=== PATIENT | female | born 1940 | race Caucasian/White ===

== ENCOUNTER 2022-05-16 18:58 | Inpatient (IN) | payer MEDICARE, SELFPAY ==
[2022-05-16] VITALS (36 sets, daily range): BP systolic 87–127; BP diastolic 47–72; PULSE 58–92; RESP 12–27; O2SAT 91–100
--- NOTE | ~2022-05-16 | MR_ITS ---
EXAMINATION: MR brain/brain stem wo con DATE: 05/17/2022 08:12 INDICATION: Seizure. TECHNIQUE: Magnetic resonance imaging (MRI) of the brain and brainstem was performed without intraven ous contrast. COMPARISON: Head CT 05/16/2022 FINDINGS: There is a mass of increased T2-weighted signal intensity in left frontal lobe involving gr ay matter and white matter measuring 2.7 cm with mild enlargement of the involved gyrus. There are sc attered areas of nonspecific increased T2-weighted signal intensity in the cerebral white matter, whi ch is within normal limits for the patient's age. There is no acute ischemic infarct or intracranial hemorrhage. The ventricles are normal in size. There is mild mucosal thickening in the paranasal sinu ses. There are likely changes of ocular lens replacement surgeries. The mastoid air cells are normal. IMPRESSION: 1. 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 The differential diagnosis includes glioma, cortical dysplasia, and subacute infarct. Reviewed, dictated and finalized at location A. IMPRESSION: 1. 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 The differential diagnosis includes glioma , cortical dysplasia, and subacute infarct.
--- NOTE | ~2022-05-16 | XR_ITS ---
XR chest 1V portable 05/16/2022 19:41 Indication: Seizure. History of A. fib. Procedure: AP portable chest Comparison: No prior studies for comparison. Findings: Cardiomegaly. Mild interstitial edema. No pleural effusion or pneumothorax. No acute osseou s abnormality. Impression: 1: Cardiomegaly with interstitial edema. Reviewed, dictated and finalized at location A. Impression: 1: Cardiomegaly with interstitial edema.
--- NOTE | ~2022-05-16 | CT_ITS ---
EXAMINATION: CT brain wo con DATE: 05/16/2022 19:32 INDICATION: Altered mental status. Seizures. TECHNIQUE: Computed tomography (CT) of the head was performed without intravenous contrast. The dose- length product was 681.00 mGy-cm. Automated exposure control and iterative reconstruction technique w ere employed. COMPARISON: No prior studies for comparison. FINDINGS: Prominent perivascular space in the right basal ganglia. Mild generalized atrophy. There ar e scattered mild periventricular and subcortical white matter changes, most likely related to small v essel ischemic disease (microangiopathy). No ventriculomegaly or midline shift. No acute intracranial hemorrhage, infarction, mass or mass effect. IMPRESSION: 1. No acute intracranial abnormality. 2: Chronic age-related findings. Reviewed, dictated and finalized at location A.
--- NOTE | 2022-05-16 19:02 | ECG_ITS ---
Measurements Intervals [place] Rate: 79 P: 75 UT: 197 QRS: -16 QRSD: 144 T: 17 QT: 435 QTc: 499 Interpretive Statements SINUS RHYTHM RIGHT BUNDLE BRANCH BLOCK BASELINE ARTIFACT- I, III, AVR, AVL, AVF ABNORMAL ECG Electronically Signed On 05-17-2022 6:34:30 CDT by Ortiz Frost D.O.
--- NOTE | 2022-05-16 19:04 | ED.GENADULT ---
HPI - General Adult General Chief complaint: Seizure Stated complaint: ams w/ loc Time Seen by Provider: 05/16/22 19:01 History of Present Illness HPI narrative: Patient is a 81-year-old female who presents ER with altered mental status. Patient collapsed at home as witnessed by . Was stuck between that and wall. Had a small abrasion over the bridge of her nose. EMS reports patient was waking up and speaking to them though she was confused in the ambulance on the way to the ER. Patient had normal strength and was moving all extremities. Patient then had a generalized tonic-clonic seizure where she started turning to the right side with her head deviating with her eyes. They give her 5 mg of Valium. They then began providing supportive respirations as patient was sonorous. Patient is still postictal/sedated upon arrival. Not responsive to sternal rub. She still has sonorous respirations. No history of seizure history. Patient is on apixaban. Related Data Home Medications Medication Instructions Recorded Confirmed apixaban 5 mg tablet (Eliquis) 5 mg PO BID 03/08/21 03/08/21 atorvastatin 10 mg tablet 10 mg PO DAILY 03/08/21 03/08/21 ferrous sulfate 325 mg (65 mg 325 mg PO DAILY 03/08/21 03/08/21 iron) tablet furosemide 40 mg tablet 40 mg PO QAM 03/08/21 03/08/21 lisinopril 10 mg tablet 10 mg PO DAILY 03/08/21 03/08/21 metoprolol succinate 50 mg 50 mg PO DAILY 03/08/21 03/08/21 tablet,extended release 24 hr multivitamin 1 tablet PO DAILY 03/08/21 03/08/21 sotalol PO 03/08/21 03/08/21 Allergies Allergy/AdvReac Type Severity Reaction Status Date / Time No Known Allergies Allergy Unverified 04/27/20 13:17 Review of Systems Review of Systems: ROS unobtainable: Yes unobtainable due to medical condition PMFSH Past Medical History Medical History (Updated 05/16/22 @ 23:52 by Alec Maki MD) A-fib H/O blood clots Osteoarthritis of right knee Family History Family History Father Malignant neoplasm of prostate Other Family history of arthritis Family history of cardiovascular disease Hypertension Social History Social History Smoking status: Never smoker Alcohol intake: current Gender identity (if verbalized by the patient): Female Exam Narrative: GENERAL: Ill-appearing, well-nourished, and post-ictal. HEAD: Normocephalic, atraumatic. EYES: PERRL and EOMI. ENT: Mucous membranes moist. Abrasion over the bridge of the nose. CHEST: Clear to auscultation. No respiratory distress. HEART: Regular rate and rhythm. Normal peripheral pulses. ABDOMEN: Soft, nontender, nondistended. EXTREMITIES: Normal range of motion. No edema. SKIN: Warm, dry, no rash. NEURO: Patient initially sedated and postictal and oriented x0 for response to sternal rub. As sedation wore off patient became awake alert and oriented x2 with confusion moving all extremities well with no facial droop or slurred speech. Course Course Emergency Course: Neurology consulted and recommends MRI and EEG. Patient is already been loaded with [employer]. Family has been updated on diagnosis and treatment plan. Vital Signs Vital signs: Vital Signs Pulse Rate 92 05/16/22 18:59 Respiratory Rate 16 05/16/22 18:59 Blood Pressure 123/63 05/16/22 18:59 Pulse Oximetry 94 05/16/22 18:59 Oxygen Delivery Room Air 05/16/22 18:59 Pulse Rate 67 05/16/22 21:01 Respiratory Rate 16 05/16/22 21:01 Blood Pressure 118/67 05/16/22 21:01 Pulse Oximetry 100 05/16/22 21:01 Oxygen Delivery Room Air 05/16/22 18:59 Medical Decision Making Vital Signs Vital Signs: Vital Signs Pulse Rate 92 05/16/22 18:59 Respiratory Rate 16 05/16/22 18:59 Blood Pressure 123/63 05/16/22 18:59 Pulse Oximetry 94 05/16/22 18:59 Oxygen Delivery Room Air 05/16/22 18:59 Pulse Rate 67 07/12
[2022-05-16 19:15] LABS: Alveolar/Arterial O2 Gradient 42.1 mmHg; Base Excess ABG -7.1 mEq/l (+/-2.0); Carboxyhemoglobin 0.3 % THb (0-2.0); Fractional Inspired Oxygen 32 %; HCO3 ABG 20.6 mEq/l (22.0-26.0); Methemoglobin ABG 0.2 %THb (0-1.5); Oxygen Content ABG 16.6 %vol (16.0-22.0); Oxygen Saturation ABG 97.9 % (95.0-100.0); Oxyhemoglobin 96.6 % THb (90.0-100.0); PO2 ABG 126.4 mmHg (80.0-100.0); PO2 FiO2 Ratio Arterial Blood 3.95 %; Reduced Hemoglobin 2.9 %THb (0-5.0); Total Hemoglobin 12.1 g/dL (12.0-18.0)
[2022-05-16 19:16] LABS: Basophils Percent Auto 0.4 % (0.2-1.2); Eosinophils Absolute Auto 0.1 K/mm3 (0-0.3); Eosinophils Percent Auto 1.3 % (0-4.4); Hematocrit 37.1 % (37.0-47.0); Hemoglobin 11.2 g/dL (12.0-15.0); Immature Granulocyte Absolute 0.02 K/mm3 (0.00-0.031); Immature Granulocyte Percent A 0.3 % (0-0.5); Lymphocytes Absolute Auto 2.13 K/mm3 (0.9-3.2); Lymphocytes Percent Auto 31.9 % (18.3-44.2); Mean Corpuscular HGB Conc 30.2 g/dl (32-36); Mean Corpuscular Hemoglobin 30.9 pg (26-34); Mean Corpuscular Volume 102.5 fl (80-100); Mean Platelet Volume 11.4 fl (7.4-10.4); Monocytes Absolute Auto 0.7 K/mm3 (0.1-0.6); Monocytes Percent Auto 10.3 % (2.6-8.5); Neutrophils Absolute Auto 3.7 K/mm3 (1.3-6.7); Neutrophils Percent Auto 55.8 % (45.5-73.1); Platelet Count Result 173 k/mm3 (150-375); Red Blood Count 3.62 M/mm3 (4.2-5.4); Red Cell Distribution Width 13.2 % (11.5-14.5); White Blood Count 6.7 K/mm3 (4.5-10.0)
[2022-05-16 19:17] LABS: Site Drawn RIGHT RADIAL; pH ABG 7.224 (7.350-7.450)
[2022-05-16 19:18] LABS: Device NASAL CANNULA; Modified Allen's Test Pass
[2022-05-16 19:26] LABS: Alanine Aminotransferase 22 U/L (6-35); Albumin Level 4.5 g/dL (3.5-5.1); Alkaline Phosphatase 65 U/L (38-126); Anion Gap 17 mmol/L (8-16); Aspartate Amino Transferase 37 U/L (14-36); Bilirubin,Total 0.6 mg/dL (0.2-1.3); Blood Urea Nitrogen 29 mg/dL (7-17); Calcium 8.7 mg/dL (8.4-10.2); Carbon Dioxide 21 mmol/L (22-30); Chloride 105 mmol/L (98-107); Estimated CRCL calculation 30 ml/min; Estimated Glomerular Filt Rate 29; Glucose 132 mg/dL (65-110); Potassium 3.5 mmol/L (3.4-5.0); Sodium 143 mmol/L (137-145)
[2022-05-16 19:27] LABS: INR 1.4; Lactic Acid Reflex 8.3 mmol/L (0.7-2.0); Partial Thromboplastin Time 26.4 SECONDS (22.3-36.8); Prothrombin Time 16.5 Seconds (11.1-14.7)
[2022-05-16] MEDS: levETIRAcetam 1000MG/NACL100ML 1,000 MG/100 ML BAG 400 MG IVPB (19:39)
[2022-05-16] MEDS: SODIUM CHLORIDE 0.9% IV 1,000 ML 999 ML IV CONT (19:43)
[2022-05-16 20:24] LABS: NT Pro B Type Natriuretic Pept 853 pg/mL (5-100)
[2022-05-16 20:52] LABS: SARS-CoV-2 RNA PCR Negative
[2022-05-16 21:19] LABS: Ethanol < 10 mg/dL (<10)
[2022-05-16 21:28] LABS: Appearance Urine Clear (Clear); Bilirubin Urine Negative (Negative); Glucose Urine UA Negative (Negative); Ketones Urine Negative (Negative); Leukocyte Esterase Ur Trace LEU/UL (Negative); Nitrate Urine Negative (Negative); Protein Urine Negative (Negative); Urobilinogen Urine 0.2 mg/dL (<2.0)
[2022-05-16 21:30] LABS: Add Urine Microscopic? YES; Blood Urine Trace-Intact (Negative); Color Urine Light Yellow (Yellow)
--- NOTE | 2022-05-16 21:31 | PM.IMHP ---
H&P: HPI History of Present Illness Date/Time: 05/16/22 21:31 Chief Complaint: altered mental status Narrative: this is a 81-year-old female with past medical history significant for atrial fibrillation, hypertension, chronic kidney disease, congestive heart failure, cardiomyopathy. Patient was brought to the emergency room via EMS after she was at home and found her while having a seizure, had another seizure In the emergency room grand mal seizure, has no recollection of events but is awake alert and oriented x3. Patient has been in her usual state of health up until this moment denies any fevers, chills, cough, sputum production, nausea, vomiting, diarrhea, abdominal pain, pain or burning with urination, chest pain, vision changes, headaches, denies any focal sensorimotor deficit, no weight loss. preliminary workup was significant for a lactic acid of 8 ABG pH is 7.2 pCO2 50 PO2 120, basic metabolic profile showed a creatinine of 1.7, a head CT did not show any acute intracranial abnormalities. patient has been admitted for further evaluation management and treatment. Review of Systems Review of Systems: seizure, altered mental status. Constitutional: Constitutional: Denies chills, Denies excessive sweating, Denies fatigue, Denies fever(s), Denies frequent falls, Denies headache(s), Denies lethargy, Denies malaise, Denies night sweats, Denies poor appetite, Denies stops breathing during sleep, Denies weakness and Denies weight loss Eyes: Eyes: Denies blind spots, Denies blurry vision, Denies change in vision, Denies diplopia and Denies floaters ENT: Denies dysphagia, Denies vertigo, Denies dizziness, Denies nasal discharge, Denies nasal obstruction and Denies odynophagia Cardiovascular: Cardiovascular: Denies syncope, Denies pedal edema, Denies irregular heart rhythm, Denies leg edema, Denies lightheadedness, Denies palpitations and Denies dyspnea on exertion Respiratory: Respiratory: Denies chest congestion, Denies cough, Denies excessive phlegm production and Denies dyspnea Gastrointestinal: Gastrointestinal: Denies abdominal pain, Denies dyspepsia, Denies heartburn, Denies diarrhea, Denies nausea and Denies vomiting Genitourinary: Genitourinary: Denies dysuria Musculoskeletal: Musculoskeletal: Denies joint swelling, Denies muscle weakness and Denies neck pain Integumentary/Breasts: Skin/Breast: Denies rash Neurologic: Denies vertigo, Denies dizziness, Reports syncope, Denies focal weakness and Denies Sensory deficit (Neuro) Psychiatric: Psychiatric: Reports no additional psychiatric complaints and Reports as per HPI Endocrine: Endocrine: Denies cold intolerance, Denies fatigue, Denies flushing, Denies heat intolerance, Denies polyphagia, Denies polydipsia and Denies palpitations Hematologic/Lymphatic: Hematologic/Lymphatic: Reports no additional hematologic/lymphatic complaints and Reports as per HPI Allergic/Immunologic: Allergic/Immunologic: Reports no additional allergic/immunologic complaints and Reports as per HPI PMFSH Past Medical History Medical History (Updated 05/17/22 @ 03:27 by Raul Peter MD) A-fib H/O blood clots Osteoarthritis of right knee Family History Family History Father Malignant neoplasm of prostate Other Family history of arthritis Family history of cardiovascular disease Hypertension Social History Social History Smoking status: Never smoker Second hand tobacco smoke exposure: Yes Alcohol intake: current Drinks per week: 7 Substance use: never Substance use type: does not use Gender identity (if verbalized by the patient): Female Spiritual care concerns: No Meds Home Medications and Allergies Home Medications Medication Instructions Recorded Confirmed Type apixaban 5 mg tablet (Eliquis) 5 mg PO BID 03/08/21 05/17/22 History atorva
[2022-05-16 21:37] LABS: Amphetamine Screen Urine Negative (Negative); Barbiturate Screen Urine Negative (Negative); Benzodiazepines Screen Urine Negative (Negative); Cannabinoid Screen Urine Negative (Negative); Cocaine Screen Urine Negative (Negative); Methadone Screen Urine Negative (Negative); Opiate Screen Urine Negative (Negative); Phencyclidine Screen Urine Negative (Negative)
[2022-05-16 21:40] LABS: Bacteria Urine Trace /hpf; Mucus Urine Rare /lpf; RBC Urine 0-2 /hpf (0-2); Squamous Epithelial Cell Urine Rare /hpf (Few); WBC Urine 0-3 /hpf
[2022-05-16 22:14] LABS: Reflex Lactic Acid Yes or No Add Lactic
[2022-05-17] VITALS (25 sets, daily range): BP systolic 100–128; BP diastolic 50–88; PULSE 56–84; RESP 14–24; TEMP 36.2–37.2; O2SAT 84–100; BMI 31.3
--- NOTE | 2022-05-17 | ECHO_ITS ---
Patient Info Name: Carmen Arzate Age: 81 years : 1940 Gender: Female Ht: 69 in Wt: 209 lbs BSA: 2.18 m2 HR: 67 bpm BP: 101 / 63 mmHg Heart Rhythm: Sinus Rhythm Technical Quality: Fair Exam Date: 05/17/2022 11:45 AM Exam Location: Echo Lab Patient Status: Outpatient Admit Date: 05/16/2022 Staff Ordering Physician: Raul Peter MD Partner Alliance Manager: Katy Martines RDCS Attending Provider: Madie Prakash PA-C Referring Physician: Rome YAN; Exam Type: CA echo doppler color flow Study Info Indications - SEIZURE Complete two-dimensional, color flow and Doppler transthoracic echocardiogram is performed. Summary 1. Complete two-dimensional, color flow and Doppler transthoracic echocardiogram is performed. 2. Left ventricular chamber dimension is normal. 3. Left ventricular systolic function is normal, estimated at 55-60%. 4. The left ventricular diastolic function is grade III diastolic dysfunction. 5. Right atrial chamber dimension is mildly enlarged. 6. There is trace mitral valve regurgitation. 7. There is mild tricuspid valve regurgitation. 8. No pulmonary hypertension, estimated pulmonary arterial systolic pressure is 31 mmHg. Left Ventricle E/e' tissue doppler is not performed. Left ventricular chamber dimension is normal. Left ventricular systolic function is normal, estimated at 55-60%. The left ventricular diastolic function is grade III diastolic dysfunction. Right Ventricle Right ventricular chamber dimension is normal. Right ventricular systolic function is normal. Left Atria Left atrial chamber dimension is normal. Right Atria Right atrial chamber dimension is mildly enlarged. Aortic Valve The aortic valve is trileaflet. There is no aortic valve stenosis. There is no aortic valve regurgitation. Pulmonic Valve There is no pulmonic regurgitation. Mitral Valve There is no mitral valve stenosis. There is trace mitral valve regurgitation. Tricuspid Valve There is mild tricuspid valve regurgitation. No pulmonary hypertension, estimated pulmonary arterial systolic pressure is 31 mmHg. Pericardium/Pleural There is no pericardial effusion. Inferior Vena Cava Normal inferior vena cava with >50% collapse upon inspiration consistent with normal right atrial pressure, 5 mmHg. Aorta The aortic root size at the sinus of Valsalva is normal. Left Ventricular Outflow Tract Name Value Normal LVOT Doppler LVOT Peak Gradient 3 mmHg LVOT Mean Gradient 2 mmHg LVOT VTI 21 cm LVOT VTI/AV VTI Ratio 0.8 Pulmonic Valve Name Value Normal RVOT Doppler RVOT Peak Gradient 2 mmHg PV Doppler PV Peak Gradient 4 mmHg Tricuspid Valve
--- NOTE | 2022-05-17 01:37 | ADMGEN ---
This patient, Carmen Arzate, was admitted to 2 Medical Room 241-01. Patient/family oriented to hospital policies and general routines including ID bracelet, bed and alarms, visiting hours, pain management, procedures, bathroom and other care routines, personal items, smoking policy, room service/diet, and visiting hours. Information on how to activate the Rapid Response Team has been discussed. Patient/Family are encouraged to report perceived risks to care and to ask questions if they do not understand what they are told or what they should do.
[2022-05-17] MEDS: levETIRAcetam 500MG/NACL 100ML 500 MG/100 ML BAG 400 MG IVPB ×2 (08:31→20:11)
[2022-05-17] MEDS: FERROUS SULFATE 324 MG TABLET PO (08:37)
[2022-05-17] MEDS: SOTALOL HCL 40 MG TABLET PO (08:37)
[2022-05-17] MEDS: MULTIVITAMINS THERAPEUTIC TAB (*BKC) 1 TABLET PO (08:38)
[2022-05-17] MEDS: lisinopriL 10 MG TABLET PO (08:38)
[2022-05-17] MEDS: METOPROLOL SUCCINATE EXT REL 50 MG TABCR PO (08:38)
[2022-05-17] MEDS: FUROSEMIDE 40 MG TABLET PO (08:38)
[2022-05-17] MEDS: APIXABAN 5 MG TABLET PO ×2 (08:38→20:10)
--- NOTE | 2022-05-17 11:03 | PM.IMPN ---
Progress Note: A&P Assessment and Plan (1) Seizure: Code(s): R56.9 - Unspecified convulsions Status: Acute Assessment and Plan: -seizure precautions -received Keppra load -CT of the head reviewed -EEG ordered -MRI brain shows 2.7 cm mass frontal lobe -neurology consulted, appreciate recommendations (2) Atrial fibrillation: Code(s): I48.91 - Unspecified atrial fibrillation Status: Acute Assessment and Plan: -rate controlled -anticoagulated -continue to monitor (3) CKD (chronic kidney disease) stage 3, GFR 30-59 ml/min: Code(s): N18.30 - Chronic kidney disease, stage 3 unspecified Status: Acute Assessment and Plan: -a slight elevation of creatinine of 1.7 -continue to monitor (4) Degenerative joint disease: Code(s): M19.90 - Unspecified osteoarthritis, unspecified site Status: Acute Assessment and Plan: -Tylenol as needed (5) Hypertension: Code(s): I10 - Essential (primary) hypertension Status: Acute Assessment and Plan: -stable -continue home meds Subjective Date/time seen: 05/17/22 11:03 Interval history: 81-year-old female with past medical history significant for atrial fibrillation, hypertension, chronic kidney disease, congestive heart failure, cardiomyopathy, who is seen in follow up for new onset seizure. Pt feels better and is A/Ox4 today. She admits to a headache and neck pain when she lays her head flat on a pillow. She has sharp shooting neuropathic pain in her toes which has been present for approximately 1 year. She denies focal weakness, vision changes, N/V. Review of Systems Review of Systems: All systems reviewed & are unremarkable except as noted in HPI and below Exam Narrative: General: No acute distress, non toxic appearing, obese, elderly Eyes: PERRL, no scleral icterus HEENT: NCAT, external ears normal, MMM Respiratory: No respiratory distress, Lungs CTA bilaterally, no wheezing Cardiovascular: RRR, no murmur Abdominal: Soft, nontender, non distended, no rebound or guarding Musculoskeletal: Moves all 4 extremities, no edema Neurological: A/Ox4, speech clear, no facial asymmetry, 5/5 strength bilateral upper and lower extremities Skin: Warm, dry, no rashes Psychiatric: Normal affect, normal mood Objective Data Vital Signs Vital Signs: Vital Signs - 24 hr 05/16/22 18:59 05/16/22 19:51 05/16/22 19:48 Temperature Pulse Rate 92 67 64 Respiratory Rate 16 17 Blood Pressure 123/63 Pulse Oximetry 94 100 Oxygen Delivery Room Air 05/16/22 20:00 05/16/22 20:01 05/16/22 20:15 Temperature Pulse Rate 66 68 Respiratory Rate 14 16 20 Blood Pressure 97/53 L Pulse Oximetry 100 100 100 Oxygen Delivery 05/16/22 20:16 05/16/22 20:30 05/16/22 20:31 Temperature Pulse Rate 66 66 Respiratory Rate 17 18 21 H Blood Pressure 117/47 L 108/64 Pulse Oximetry 100 100 100 Oxygen Delivery 05/16/22 20:45 05/16/22 20:46 05/16/22 21:00 Temperature Pulse Rate Respiratory Rate 15 13 20 Blood Pressure 107/58 L Pulse Oximetry 100 100 100 Oxygen Delivery 05/16/22 21:01 05/17/22 01:35 05/17/22 01:38 Temperature 97.2 F L Pulse Rate 67 64 72 Respiratory Rate 16 20 21 H Blood Pressure 118/67 115/55 L 115/62 Pulse Oximetry 100 100 100 Oxygen Delivery 05/16/22 21:02 05/16/22 21:15 05/16/22 21:16 Temperature Pulse Rate 69 62 62 Respiratory Rate 20 17 13 Blood Pressure 118/62 Pulse Oximetry 100 100 100 Oxygen Delivery 05/16/22 21:30 05/16/22 21:32 05/16/22 21:45 Temperature Pulse Rate 58 L 65 63 Respiratory Rate 23 H 18 16 Blood Pressure 113/55 L Pulse Oximetry 100 100 91 Oxygen Delivery 05/16/22 21:46 05/16/22 22:00 05/16/22 22:01 Temperature Pulse Rate 64 74 75 Respiratory Rate 14 15 17 Blood Pressure 118/57 L 111/59 L Pulse Oximetry 100 98 100 Oxyge
--- NOTE | 2022-05-17 12:01 | WPDNEURCNPN ---
Assessment and Plan Assessment and plan (1) Tumor: Code(s): D49.9 - Neoplasm of unspecified behavior of unspecified site Status: Acute Assessment and Plan: 2.7cm mass in the left frontal lobe with differential diagnosis of glioma versus cortical dysplasia versus subacute infarct in addition to history of initially focal seizure with secondary generalization as witnessed by the ER that her head was turned to the right side she will benefit from the follow-up and neurosurgical opinion obviously if it is small stroke it will disappear on the subsequent scan which she will definitely need but in addition if she has underlying cortical dysplasia or glioma that needs to be pursued further through the neurosurgical department Consult date: 05/17/22 Time Seen: 11:00 Reason for consult: seizure HPI: Carmen Arzate is a 81 year old female admitted to the hospital through the emergency room for the complaints of change in mental status patient reportedly collapsed at home as witnessed by she was stuck between that and wall had a small abrasion over the bridge of her nose EMS reported patient was waking up and speaking to them though she was confusing the ambulance on the way to the ER she had normal strength and was moving all extremities then she had a generalized tonic-clonic seizure where she was started turning to the right with her head deviating with her eyes they gave her 5 mg of Valium and again providing supportive respiration as patient was sonorous patient was still postictal and sedated upon arrival to the emergency room and not responsive to the sternal rub. Her medication as an outpatient included apixaban 5 mg twice a day, atorvastatin 10 mg daily, furosemide 40 mg daily, lisinopril 10 mg daily, metoprolol 50 mg daily, extended release and sotalol daily she is not allergic to any medication, by history she has atrial fibrillation in addition to osteoarthritis of right knee, was never a smoker current alcohol intake and initial examination in the emergency room she was noted leak slowly improving though still she was slightly confused. Her vital signs remained stable her initial labs was unremarkable with BNP of 853 and lactic acid of 8.3 UA negative, initial CT scan of the head only documented chronic age-related finding, and chest x-ray documented cardiomegaly with interstitial edema, Review of Systems Review of Systems: All systems reviewed & are unremarkable except as noted in HPI and below [facility] Past Medical History Medical History (Updated 05/17/22 @ 12:10 by Magdaleno Ritter MD) A-fib H/O blood clots Osteoarthritis of right knee Family History Family History Father Malignant neoplasm of prostate Other Family history of arthritis Family history of cardiovascular disease Hypertension Social History Social History Smoking status: Never smoker Second hand tobacco smoke exposure: Yes Alcohol intake: current Drinks per week: 7 Substance use: never Substance use type: does not use Gender identity (if verbalized by the patient): Female Spiritual care concerns: No Meds Home Medications and Allergies Home Medications Medication Instructions Recorded Confirmed Type apixaban 5 mg tablet (Eliquis) 5 mg PO BID 03/08/21 05/17/22 History atorvastatin 10 mg tablet 10 mg PO HS 03/08/21 05/17/22 History ferrous sulfate 325 mg (65 mg 65 mg PO DAILY 03/08/21 05/17/22 History iron) tablet furosemide 40 mg tablet 40 mg PO QAM 03/08/21 05/17/22 History lisinopril 10 mg tablet 10 mg PO DAILY 03/08/21 05/17/22 History metoprolol succinate 50 mg 50 mg PO DAILY 03/08/21 05/17/22 History tablet,extended release 24 hr multivitamin 1 tablet PO DAILY 03/08/21 05/17/22 History sotalol 80 mg tablet 40 mg PO DAILY 05/17/22 05/17/22 History Allergies Allergy/AdvReac Type Severity Re
--- NOTE | 2022-05-17 17:29 | WPDCN ---
Assessment and Plan Assessment and plan (1) Brain lesion: Code(s): G93.9 - Disorder of brain, unspecified Status: Acute Plan Assessment: The patient presents at this time with a seizure and imaging which reveals an abnormality in the left frontal lobe. This lesion could represent neoplasm, infarction, or less likely a congenital cortical dysplasia. Recommendations: I have spoken with the patient and her daughter who is a forensic pathologist. I also spoke with Madie Prakahs, the nurse practitioner involved in this case. I have recommended that she speak with the neuroradiologist tomorrow about the risks of a contrast-enhanced study. If low risk, it may be worthwhile adding this to the study as it could be very useful in defining this lesion. Alternatively a follow-up MRI without contrast in the next few weeks may be useful in differentiating a stroke from neoplasm. 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 I explained that it is very unusual for squamous cell carcinoma to metastasize to the brain, although possible. However, a metastatic workup may be worthwhile in this setting and other primary sites need to be considered. The patient's daughter informed me that her mother and her family have received much of their care at [facility] and they are interested in pursuing further workup and treatment for this problem at that institution. If she remains seizure free it may be possible to discharge her in the next day or 2 and facilitate a follow-up visit in the near future at [facility]. I will defer to regarding any other workup necessary for a possible stroke. I agree with managing her seizures with Keppra. Again I will leave this choice up to . I do not believe that Decadron therapy is indicated at this time given the absence of mass effect. I should be contacted with any deterioration in her neurologic status. I have offered to provide future neurosurgical care. However the family has decided they would like to receive this care at [facility] which is entirely reasonable. If a contrast-enhanced study is suggestive of malignancy it will be important for her to receive outpatient neurosurgical care at [facility] within the next week or so and her anticoagulation will need to be discontinued for possible biopsy or resection. She should have neurologic checks with her vital signs while she is here. HPI Data of Consult Date/Time: 05/17/22 17:29 Requesting Physician: Madie Prakash PA-C Primary Care Provider: Johnathan St MD Consult Narrative Narrative: Carmen Arzate is a 81 year old female who I was asked to see for a recently discovered brain lesion. Last evening around 7:00 p.m. her witnessed ?shaking movements?. EMS was contacted and apparently another seizure was witnessed which her daughter described as posturing type movements and may have included some head turning to the right. She has been placed on IV Keppra. She has not had any seizure activity since last night. She feels tired and sleepless but otherwise has no neurologic complaints. She denies any difficulties with her language function, numbness, headache, visual disturbances. Her daughter who is a forensic pathologist was visiting her today. I spoke with her on the phone. She thought that her mother was cognitively sharp and at her baseline. A couple of months ago she noted some episodes of confusion but this has not been the case more recently. Review of Systems Review of Systems: Her review of systems is otherwise unremarkable. She denies any recent problems with fevers, chills, sweats, excessive weight change, chest pain, shortness of breath, abdominal pain, nausea, vomiting, diarrhea, blood in the stool or urine. Constitutional: Constitutional: Reports no additional constitutional complaints
[2022-05-17] MEDS: ATORVASTATIN 10 MG TABLET PO (20:10)
[2022-05-18] VITALS (7 sets, daily range): BP systolic 112–114; BP diastolic 58–62; PULSE 55–71; RESP 18; TEMP 36.4; O2SAT 91–95
[2022-05-18 06:43] LABS: Basophils Percent Auto 0.2 % (0.2-1.2); Eosinophils Absolute Auto 0.1 K/mm3 (0-0.3); Eosinophils Percent Auto 1.3 % (0-4.4); Hematocrit 32.1 % (37.0-47.0); Hemoglobin 9.9 g/dL (12.0-15.0); Immature Granulocyte Absolute 0.01 K/mm3 (0.00-0.031); Immature Granulocyte Percent A 0.2 % (0-0.5); Lymphocytes Absolute Auto 0.87 K/mm3 (0.9-3.2); Lymphocytes Percent Auto 19.3 % (18.3-44.2); Mean Corpuscular HGB Conc 30.8 g/dl (32-36); Mean Corpuscular Hemoglobin 30.9 pg (26-34); Mean Corpuscular Volume 100.3 fl (80-100); Mean Platelet Volume 11.9 fl (7.4-10.4); Monocytes Absolute Auto 0.5 K/mm3 (0.1-0.6); Monocytes Percent Auto 10.9 % (2.6-8.5); Neutrophils Absolute Auto 3.1 K/mm3 (1.3-6.7); Neutrophils Percent Auto 68.1 % (45.5-73.1); Platelet Count Result 120 k/mm3 (150-375); Red Cell Distribution Width 13.2 % (11.5-14.5); White Blood Count 4.5 K/mm3 (4.5-10.0)
[2022-05-18 06:58] LABS: Anion Gap 4 mmol/L (8-16); Blood Urea Nitrogen 23 mg/dL (7-17); Calcium 8.4 mg/dL (8.4-10.2); Carbon Dioxide 28 mmol/L (22-30); Chloride 106 mmol/L (98-107); Estimated CRCL calculation 32 ml/min; Estimated Glomerular Filt Rate 33; Glucose 85 mg/dL (65-110); Potassium 3.7 mmol/L (3.4-5.0); Sodium 138 mmol/L (137-145)
[2022-05-18 07:40] LABS: Alveolar/Arterial O2 Gradient 44.6 mmHg; Base Excess ABG 2.4 mEq/l (+/-2.0); Fractional Inspired Oxygen 21 %; HCO3 ABG 26.6 mEq/l (22.0-26.0); Oxygen Content ABG 14.8 %vol (16.0-22.0); Oxygen Saturation ABG 91.1 % (95.0-100.0); Oxyhemoglobin 88.5 % THb (90.0-100.0); PCO2 ABG 39.6 mmHg (35.0-45.0); PO2 ABG 57.7 mmHg (80.0-100.0); PO2 FiO2 Ratio Arterial Blood 2.75 %; Total Hemoglobin 11.9 g/dL (12.0-18.0); pH ABG 7.445 (7.350-7.450)
[2022-05-18 07:41] LABS: Device ROOM AIR; Modified Allen's Test Pass; Site Drawn RIGHT RADIAL
--- NOTE | 2022-05-18 08:24 | PM.IMPN ---
Progress Note: A&P Assessment and Plan (1) Seizure: Code(s): R56.9 - Unspecified convulsions Status: Acute Assessment and Plan: -seizure precautions -received Keppra load, continue Keppra -CT of the head reviewed -EEG ordered -MRI brain shows 2.7 cm mass frontal lobe -neurology and neurosurgery consulted -spoke w/ Dr. Fernandez our neurosurgeon who recommends MRI brain w/ contrast, however unable to do so with renal function at this time. Also discussed this at length with Dr. Steele radiology, GFR cutoff is 40 and hers is 33 today. I called [facility] and spoke w/ Dr. Stevenson neurosurgery there, as patient requested to be transferred, and wait list is over 5 days long for a bed. He recommends monitoring renal function and hopefully if it improves at all we will be able to get the MRI with contrast. He recommends not discharging her to be followed up outpatient until we are able to narrow down the differential on what this mass may be. plan: obtain prior records to determine baseline kidney function. Start low rate IVF in the event she has a pre renal CHRISTIE, caution due to her CHF hx. Repeat BMP this afternoon and tomorrow morning. Hopeful we can obtain MRI tomorrow. Per [facility] neurosurgeon he recommends high resolution scan w/ 1 mm thick slices w/ and w/o contrast. (2) Atrial fibrillation: Code(s): I48.91 - Unspecified atrial fibrillation Status: Acute Assessment and Plan: -rate controlled -anticoagulated -continue to monitor (3) CKD (chronic kidney disease) stage 3, GFR 30-59 ml/min: Code(s): N18.30 - Chronic kidney disease, stage 3 unspecified Status: Acute Assessment and Plan: -baseline unclear -see plan above (4) Hypertension: Code(s): I10 - Essential (primary) hypertension Status: Acute Assessment and Plan: -stable -continue home meds (5) CHF (congestive heart failure): Code(s): I50.9 - Heart failure, unspecified Status: Acute Assessment and Plan: -echo reviewed -continue lasix, metoprolol Subjective Date/time seen: 05/18/22 08:24 Interval history: 81-year-old female with past medical history significant for atrial fibrillation, hypertension, chronic kidney disease, congestive heart failure, cardiomyopathy, who is seen in follow up for new onset seizure. Pt is feeling well today. No recurrent seizure activity. No cp/sob. No motor loss. Long conversation at bedside today with her and her daughter. Review of Systems Review of Systems: All systems reviewed & are unremarkable except as noted in HPI and below Exam Narrative: General: No acute distress, non toxic appearing, obese, elderly Eyes: PERRL, no scleral icterus HEENT: NCAT, external ears normal, MMM Respiratory: No respiratory distress, Lungs CTA bilaterally, no wheezing Cardiovascular: RRR, no murmur Abdominal: Soft, nontender, non distended, no rebound or guarding Musculoskeletal: Moves all 4 extremities, no edema Neurological: A/Ox4, speech clear, no facial asymmetry, 5/5 strength bilateral upper and lower extremities Skin: Warm, dry, no rashes Psychiatric: Normal affect, normal mood Objective Data Vital Signs Vital Signs: Vital Signs - 24 hr 05/17/22 08:36 05/17/22 08:37 05/17/22 08:38 Temperature 99 F Pulse Rate 66 66 66 Respiratory Rate 14 Blood Pressure 117/62 Pulse Oximetry Oxygen Delivery 05/17/22 08:38 05/17/22 12:00 05/17/22 14:00 Temperature 98.3 F Pulse Rate 56 L 67 Respiratory Rate 16 Blood Pressure 128/88 Pulse Oximetry 94 Oxygen Delivery Room Air 05/17/22 16:00 05/17/22 19:09 05/17/22 20:00 Temperature 98.2 F Pulse Rate 60 65 65 Respiratory Rate 17 17 Blood Pressure 103/50 L Pulse Oximetry 95 95 Oxygen Delivery Room Air 05/17/22 20:00 05/18/22 00:00 05/18/22 03:50 Temperature 97.5 F L Pulse Rate 84 58 L 71 Respiratory Ra
[2022-05-18] MEDS: SODIUM CHLORIDE 0.9% IV 1,000 ML 50 ML IV CONT (09:16)
[2022-05-18] MEDS: levETIRAcetam 500MG/NACL 100ML 500 MG/100 ML BAG 200 MG IVPB (09:33)
--- NOTE | 2022-05-18 09:43 | WPDNEUROLOGY ---
Neurology EEG Report General Information Date of Study: 05/17/22 TEST eeg DIAGNOSIS seizure CONDITION OF RECORDING drowsy and sleep EEG NUMBER [id number] CLINICAL HISTORY Patient was found unconscious yesterday by family followed by some confusion EEG DESCRIPTION background rhythm consists of low to medium voltage 6 to 7 hertz per 2nd theta admixed with low-voltage 15 to 18 hertz per 2nd beta. Bilateral symmetrical sleep activity seen admixed with 3 to 4 hertz per 2nd delta activity intermittently hyperventilation not done. Photic stimulation not done. Non paroxysmal. Nonfocal. Nonlateralizing. IMPRESSION Abnormal record due to the presence of excessive amount of slow activity. This abnormality could be consistent with the postictal state. Considering the age of the patient clinical correlation recommended. There is no evidence of paroxysmal discharge during this recording.
[2022-05-18] MEDS: lisinopriL 10 MG TABLET PO (09:49)
[2022-05-18] MEDS: FUROSEMIDE 40 MG TABLET PO (09:49)
[2022-05-18] MEDS: SOTALOL HCL 40 MG TABLET PO (09:50)
[2022-05-18] MEDS: METOPROLOL SUCCINATE EXT REL 50 MG TABCR PO (09:50)
[2022-05-18] MEDS: APIXABAN 5 MG TABLET PO (09:50)
[2022-05-18] MEDS: MULTIVITAMINS THERAPEUTIC TAB (*BKC) 1 TABLET PO (09:50)
[2022-05-18] MEDS: FERROUS SULFATE 324 MG TABLET PO (09:50)
[2022-05-18 13:10] LABS: Anion Gap 3 mmol/L (8-16); Blood Urea Nitrogen 21 mg/dL (7-17); Calcium 8.3 mg/dL (8.4-10.2); Carbon Dioxide 27 mmol/L (22-30); Chloride 108 mmol/L (98-107); Estimated CRCL calculation 34 ml/min; Estimated Glomerular Filt Rate 36; Glucose 100 mg/dL (65-110); Sodium 138 mmol/L (137-145)
--- NOTE | 2022-05-18 14:19 | PM.TDS ---
Transfer Discharge Sum: Prov Provider Date of admission: 05/18/22 11:11 Primary care physician: Johnathan St MD Admitting clinician: Raul Peter MD Consults: 05/16/22 21:30 Consult to Physician Routine Comment: Consulting Provider: Magdaleno Ritter house calls nurse practitioner/MD group to consult: mya Reason for consultation: seizure Has provider been notified: Yes 05/17/22 Consult to Physician Routine Comment: Spoke to Randall @ office @ 15:21(,[place]) Consulting Provider: Modesto Jones house calls nurse practitioner/MD group to consult: neurosurgery Reason for consultation: brain mass Has provider been notified: Yes Attending physician on discharge: Gerry Delarosa Discharging clinician: Madie Prakash Anticipated date of transfer: 05/18/22 Receiving physician/facility: [facility] - Accepting Physician Dr. Mederos DS: Admitting Diagnosis Discharge Date 05/18/22 Admitting Diagnosis seizure DS: Discharge Diagnosis Discharge Diagnosis (1) Seizure: Code(s): R56.9 - Unspecified convulsions Status: Acute Assessment and Plan: -seizure precautions -received Keppra load, continue Keppra -CT of the head reviewed -EEG ordered -MRI brain shows 2.7 cm mass frontal lobe -neurology and neurosurgery consulted -spoke w/ Dr. Fernandez our neurosurgeon who recommends MRI brain w/ contrast, however unable to do so with renal function at this time. Also discussed this at length with Dr. Steele radiology, GFR cutoff is 40 and hers is 33 today. I called [facility] and spoke w/ Dr. Stevenson neurosurgery there, as patient requested to be transferred, and wait list is over 5 days long for a bed. He recommends monitoring renal function and hopefully if it improves at all we will be able to get the MRI with contrast. He recommends not discharging her to be followed up outpatient until we are able to narrow down the differential on what this mass may be. plan: obtain prior records to determine baseline kidney function. Start low rate IVF in the event she has a pre renal CHRISTIE, caution due to her CHF hx. Repeat BMP this afternoon and tomorrow morning. Hopeful we can obtain MRI tomorrow. Per [facility] neuro[facility]geon he recommends high resolution scan w/ 1 mm thick slices w/ and w/o contrast. received call that [facility] does in fact have a bed for her and she is being transferred there today under the care of Dr. Mederos. Neurosurgery and neurology team at [facility] will continue plans set in motion today. (2) Atrial fibrillation: Code(s): I48.91 - Unspecified atrial fibrillation Status: Acute Assessment and Plan: -rate controlled -anticoagulated (3) CKD (chronic kidney disease) stage 3, GFR 30-59 ml/min: Code(s): N18.30 - Chronic kidney disease, stage 3 unspecified Status: Acute Assessment and Plan: -baseline unclear -see plan above (4) Hypertension: Code(s): I10 - Essential (primary) hypertension Status: Acute Assessment and Plan: -stable -continue home meds (5) CHF (congestive heart failure): Code(s): I50.9 - Heart failure, unspecified Status: Acute Assessment and Plan: -echo reviewed -continue lasix, metoprolol Transfer Discharge Sum: Med Medications Active and Home Medications: Home Medications apixaban 5 mg tablet (Eliquis) 5 mg PO BID 03/08/21 [History Confirmed 05/17/22] atorvastatin 10 mg tablet 10 mg PO HS 03/08/21 [History Confirmed 05/17/22] ferrous sulfate 325 mg (65 mg iron) tablet 65 mg PO DAILY 03/08/21 [History Confirmed 05/17/22] furosemide 40 mg tablet 40 mg PO QAM 03/08/21 [History Confirmed 05/17/22] lisinopril 10 mg tablet 10 mg PO DAILY 03/08/21 [History Confirmed 05/17/22] metoprolol succinate 50 mg tablet,extended release 24 hr 50 mg PO DAILY 03/08/21 [History Confirmed 05/17/22] multivitamin 1 tablet PO DAILY 03/08/21 [History Confirmed 05/17/22] s
--- NOTE | 2022-05-18 14:29 | PC.NURSE ---
PT transferred via [facility] to [facility], Medical Coding Auditor called reports to Nel JAMA pt admitting to room 15234-3
== END 2022-05-18 14:30 | disposition short-term general hospital (02) | DRG 71 ==
LOC: ANHED 19:11 → ANH2MED 23:42
PROVIDERS: Admitting Provider Internal Medicine; Emergency Provider Emergency Medicine; PCP Family Medicine; Visit Provider Physician Assistant
DX: G93.9 Disorder of brain, unspecified (principal); I13.0 Hypertensive heart and chronic kidney disease with heart failure and stage 1 through stage 4 chronic kidney disease, or unspecified chronic kidney disease; I43 Cardiomyopathy in diseases classified elsewhere; C44.42 Squamous cell carcinoma of skin of scalp and neck; Z20.822 Contact with and (suspected) exposure to COVID-19; I50.9 Heart failure, unspecified; N18.30 Chronic kidney disease, stage 3 unspecified; I48.91 Unspecified atrial fibrillation; M17.11 Unilateral primary osteoarthritis, right knee; M54.2 Cervicalgia; M79.2 Neuralgia and neuritis, unspecified; Z79.01 Long term (current) use of anticoagulants; Z86.718 Personal history of other venous thrombosis and embolism; R56.9 Unspecified convulsions
CPT/HCPCS: 36415; 36600; 70450; 70551; 71045; 80048; 80053; 80307; 81001; 82375; 82805; 83050; 83605; 83880; 85025; 85610; 85730; 93005; 93306; 95816; 96361; 96365; 96376; 97161; 97165; 99285; A9270; C9803; G0378; J1953; J7030; U0003; U0005

== ENCOUNTER 2023-02-27 13:34 | Outpatient (CLI) | payer MEDICARE, SELFPAY ==
--- NOTE | 2023-02-27 | ECHO_ITS ---
Patient Info Name: Carmen Arzate Age: 82 years : 1940 Gender: Female Ht: 67 in Wt: 198 lbs BSA: 2.09 m2 HR: 81 bpm BP: 140 / 100 mmHg Heart Rhythm: Atrial Fibrillation Exam Date: 02/27/2023 1:51 PM Exam Location: [facility] Patient Status: Outpatient Admit Date: 02/27/2023 Staff Ordering Physician: Juliet Umanzor MD Fruit Harvester: Katy Martines RDCS Attending Provider: Juliet Umanzor MD Referring Physician: Erna STILES; Exam Type: CA echo doppler color flow Study Info Indications - Paroxysmal atrial fibrillation, COLON Summary 1. Left ventricular chamber dimension is normal. 2. Left ventricular systolic function is normal, estimated at 65-70%. 3. There is mildly increased left ventricular wall thickness. 4. Right ventricular systolic function is normal. 5. Right atrial chamber dimension is mildly enlarged. 6. There is mild mitral valve regurgitation. 7. There is mild tricuspid valve regurgitation. Left Ventricle Left ventricular chamber dimension is normal. Left ventricular systolic function is normal, estimated at 65-70%. There is mildly increased left ventricular wall thickness. Right Ventricle Right ventricular systolic function is normal. Left Atria Left atrial chamber dimension is normal. Right Atria Right atrial chamber dimension is mildly enlarged. Atrial Septum Intact interatrial septum visualized by color flow imaging. Aortic Valve The aortic valve is probable trileaflet. There is no aortic valve stenosis. There is no aortic valve regurgitation. Pulmonic Valve The pulmonic valve is not well visualized. Mitral Valve There is mild mitral valve regurgitation. Tricuspid Valve There is mild tricuspid valve regurgitation. Pericardium/Pleural There is no pericardial effusion. Inferior Vena Cava Normal inferior vena cava with >50% collapse upon inspiration consistent with normal right atrial pressure, 3 mmHg. Aorta The aortic root size at the sinus of Valsalva is normal. There is mild-moderate aortic atherosclerosis. Left Ventricular Outflow Tract Name Value Normal LVOT 2D LVOT Diameter 2.0 cm LVOT Doppler LVOT Peak Gradient 3 mmHg LVOT Mean Gradient 1 mmHg LVOT VTI 19 cm LVOT VTI/AV VTI Ratio 1.2 LVOT Stroke Volume 62 ml LVOT CO 4.3 l/min LVOT CI 2.0 l/min/m2 Pulmonic Valve Name Value Normal RVOT Doppler RVOT Peak Gradient 1 mmHg PV Doppler PV Peak Gradient 3 mmHg Mitral Valve
== END 2023-02-27 13:35 | disposition home or self-care (01) ==
LOC: ANHCARD 13:35
PROVIDERS: PCP Family Medicine; Visit Provider Internal Medicine Cardiovascular Disease
DX: I48.0 Paroxysmal atrial fibrillation (principal); I08.1 Rheumatic disorders of both mitral and tricuspid valves; R06.09 Other forms of dyspnea
CPT/HCPCS: 93306

== ENCOUNTER 2024-01-07 14:03 | Outpatient (CLI) | payer MEDICARE, SELFPAY ==
--- NOTE | ~2024-01-07 | US_ITS ---
EXAMINATION: US venous doppler [facility] DATE: 01/07/2024 15:16 INDICATION: Left lower limb swelling. TECHNIQUE: Grayscale ultrasound images without and with compression and Doppler ultrasound images of the left lower extremity veins were obtained. COMPARISON: None. FINDINGS: The visualized portions of left common femoral vein, profunda (deep) femoral vein, femoral vein, popl iteal vein, peroneal veins, posterior tibial veins, and greater saphenous vein outflow are patent. IMPRESSION: 1. No deep venous thrombosis. Reviewed, dictated and finalized at location E. YSTEM ECOLOGY PROFESSOR
== END 2024-01-07 14:04 | disposition home or self-care (01) ==
PROVIDERS: PCP Internal Medicine Cardiovascular Disease; Visit Provider Internal Medicine Cardiovascular Disease
DX: R22.42 Localized swelling, mass and lump, left lower limb (principal)
CPT/HCPCS: 93971

== ENCOUNTER 2025-03-20 13:04 | Emergency (ER) | payer MEDICARE, SELFPAY ==
--- NOTE | ~2025-03-20 | XR_ITS ---
XR foot RT 2V Ordering provider: Sydni Cali III, DO History: . PAIN . Comparison: None. FINDINGS: BONES: No acute fracture or dislocation. JOINT SPACES: Normal. No tarsal coalition. SOFT TISSUES: Normal. Calcaneal spur. IMPRESSION: No acute osseous abnormality of the right foot. Reviewed, dictated and finalized at location A.
--- NOTE | ~2025-03-20 | US_ITS ---
RIGHT LOWER EXTREMITY VENOUS ULTRASOUND Ordering provider: Kylah Arenas APRN History: . swelling . Comparison: None. FINDINGS: --COMMON FEMORAL: Patent and free of thrombus. Normal compressibility, phasic flow and augmentation. --PROXIMAL SUPERFICIAL FEMORAL: Patent and free of thrombus. Normal compressibility, phasic flow and augmentation. --DISTAL SUPERFICIAL FEMORAL: Patent and free of thrombus. Normal compressibility, phasic flow and au gmentation. --POPLITEAL: Patent and free of thrombus. Normal compressibility, phasic flow and augmentation. --POSTERIOR TIBIAL: Patent and free of thrombus. Normal compressibility, phasic flow and augmentation . IMPRESSION: Negative right lower extremity venous US. No deep vein thrombosis. Reviewed, dictated and finalized at location A.
--- NOTE | ~2025-03-20 | XR_ITS ---
XR ankle RT min 3V Ordering provider: Sydni Cali III, DO History: . PAIN . Comparison: None. FINDINGS: BONES: No acute fracture or dislocation. JOINT SPACES: Normal. SOFT TISSUES: Soft tissue swelling over the medial and lateral malleoli. Calcification seen in the so ft tissues above the medial malleolus this may be foreign bodies or vascular congestion patient's. Calcaneus spur. IMPRESSION: No acute osseous abnormality of the right ankle. Reviewed, dictated and finalized at location A.
--- OUTSIDE RECORDS SUMMARY | 2025-03-20 13:07 | XMS_ITS | Referral Summary ---
Author Organization [facility] [address] [facility] [address] [facility] [address] [place] [address] Care Team Providers Care Seed Cutter Name Role Phone Johnathan St MD Primary Care Provider Encounters Date Type Department Care Team Description 03/20/2025 Results Follow-Up [facility] Medical Group Convenient Care at [address] [phone] Abigail Clay NP 03/20/2025 12:00 PM CDT Ancillary Procedure [facility] Medical Group Imaging at [address] [phone] Right leg pain 03/20/2025 11:55 AM CDT Ancillary Procedure [facility] Medical Group Imaging at [address] [phone] Right leg pain 03/20/2025 12:15 PM CDT Office Visit [facility] Medical Group Convenient Care at [address] [phone] Abigail Clay NP Right leg pain (Primary Dx) from Last 3 Months Allergies No known active allergies Medications ferrous sulfate 325 mg (65 mg of elemental iron) tabletIndications: Iron Deficiency Anemia Take 1 tablet (325 mg total) by mouth daily with breakfast Active cholecalciferol (VITAMIN D-3) 2000 unit capsule 1 capsule (2,000 Units total) daily Active empagliflozin (JARDIANCE) 10 mg tablet Take 1 tablet (10 mg total) by mouth daily 90 tablet 2 02/01/20 24 Active metoprolol XL (TOPROL-XL) 100 mg 24 hr tabletIndications: Essential hypertension,H/O cardiomyopathy,Diego gstanding persistent atrial fibrillation (HCC) Take 1 tablet (100 mg total) by mouth daily Total of 150 mg daily. 100 tablet 3 11/28/19 25 Active Additional Information Patient not taking.Reported on 03/20/2025 atorvastatin (LIPITOR) 10 mg tabletIndications: hyperlipidemia Take 1 tablet (10 mg total) by mouth nightly 90 tablet 3 11/28/19 25 026 Active metoprolol XL (TOPROL-XL) 50 mg extended release tabletIndications: Persistent atrial fibrillation (HCC) Take 1 tablet (50 mg total) by mouth daily Total of 150 mg daily. (100 mg tablets + 50 mg tablets) 90 tablet 3 12/01/19 25 026 Active apixaban (Eliquis) 2.5 mg tabletIndications: Paroxysmal atrial fibrillation (HCC) Take 1 tablet by mouth twice daily 180 tablet 1 01/23/20 25 Active furosemide (LASIX) 40 mg tabletIndications: Localized edema TAKE 1 TABLET BY MOUTH ONCE DAILY. MAY TAKE AN ADDITIONAL TABLET DAILY NEEDED FOR SWELLING 90 tablet 1 01/23/20 25 Active levETIRAcetam (KEPPRA) 750 mg tablet Take 1 tablet by mouth twice daily 180 tablet 01/24/20 25 Active lisinopriL (PRINIVIL,ZESTRIL) 10 mg tabletIndications: Essential hypertension,H/O cardiomyopathy Take 1 tablet (10 mg total) by mouth daily 90 tablet 01/27/20 25 026 Active Active Problems Problem Noted Date Diagnosed Date Localized swelling of left lower extremity 12/26 Caregiver stress 12/26/2023 History of DVT (deep vein thrombosis) 12/26/2023 Other thrombophilia 08/20/2023 Brain mass 08/20/2023 COLON (dyspnea on exertion) 09/28/2021 Stage 3b chronic kidney disease 09/28/2021 QT prolongation 04/21/2020 Hypercholesteremia 04/21/2020 Pain of right hip joint 09/07/2019 H/O cardiomyopathy 09/14/2018 Planned postoperative wound closure 05/10/2018 Overview (05/10/2018): Added automatically from request for surgery [id number] Basal cell carcinoma of scalp 05/10/2018 Overview (05/10/2018): Added automatically from request for surgery [id number] Encounter for other plastic and reconstructive surgery following medical procedure or healed injury 05/10/2018 Overview (05/10/2018): Added automatically from request for surgery [id number] Basal cell carcinoma (BCC) of scalp 04/26/2018 Edema 06/28/2017 Medication monitoring encounter 06/28/2017 Assessment & Plan (06/28/2017 7:38 PM CDT): Taking sotalol, needs periodic evaluation of QT interval Neck pain 09/27/2016 Overview (02/09/2017): Neck pain Chronic anticoagulation 07/25/2016 Overview (02/09/2017): Chronic anticoagulation Assessment & Plan (06/28/2017 7:35 PM CDT): No bleeding with Pradaxa Non-rheumatic mitral regurgitation 07/05/2016 Overview (02/09/2017): Nonrheumatic mitral valve regurgitation Assessment & Plan (06/28/2017 7:37 PM CDT): Had moderately severe mitral regurgitation June 2016, improved with therapy. Only mild in October 2016. Permanent atrial fibrillation 07/05/2016 Overview (02/09/2017): Persistent atrial fibrillation Non-rheumatic tricuspid valve insufficiency 06/07 Overview (02/09/2017): Tricuspid valve regurgitation, nonrheumatic Essential hypertension 07/05/2016 Overview (02/09/2017): Essential hypertension Assessment & Plan (06/28/2017 7:36 PM CDT): Hypertension is treated and at goal Resolved Problems Problem Noted Date Diagnosed Date Resolved Date Brain mass 05/18/2022 08/20/2023 CKD (chronic kidney disease) 04/21/2020 08/20/2023 Chronic systolic heart failure 09/27/2016 06/28/2017 Overview (02/08/2017): Chronic systolic CHF (congestive heart failure) Paroxysmal atrial fibrillation 09/27/2016 12/26/2023 Overview (02/09/2017): PAF (paroxysmal atrial fibrillation) Assessment & Plan (06/28/2017 7:35 PM CDT): Has remained in sinus rhythm since cardioversion July 07, 2016, on sotalol. Acute systolic heart failure 07/05/2016 06/28/2017 Overview (02/09/2017): Acute systolic CHF (congestive heart failure) Drug therapy finding 07/05/2016 017 Overview (02/09/2017): Therapeutic drug monitoring Cardiomyopathy 07/05/2016 09/14/2018 Overview (02/09/2017): Cardiomyopathy Assessment & Plan (06/28/2017 7:36 PM CDT): History of cardiomyopathy, EF down to 31%, probably tachycardia induced. 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 Gender Identity Not on file Sexual Orientation Not on file Last Filed Vital Signs Vital Sign Reading Time Taken Comments Blood Pressure 113/72 03/20/2025 11:28 AM CDT Pulse 72 03/20/2025 11:28 AM CDT Temperature 37.1 C (98.7 F) 03/20/2025 11:28 AM CDT Respiratory Rate 20 03/20/2025 11:28 AM CDT Oxygen Saturation 98% 03/20/2025 11:28 AM CDT Inhaled Oxygen Concentration - - Weight 78.9 kg (174 lb) 03/20/2025 11:28 AM CDT Height 170.2 cm (5' 7 ) 03/20/2025 11:28 AM CDT Body Mass Index 27.25 03/20/2025 11:28 AM CDT Plan of Treatment Not on file Procedures Procedure Name Priority Date/Time Associated Diagnosis Comments XR ANKLE RIGHT 3 OR MORE VIEWS Schedule KATHY, Read KATHY (Appt Today, Awaiting Results) 03/20/2025 12:09 PM CDT Right leg pain XR TIBIA FIBULA RIGHT2 VIEWS Schedule KATHY, Read KATHY (Appt Today, Awaiting Results) 03/20/2025 12:08 PM CDT Right leg pain from Last 3 Months Results * XR Ankle Right 3+ Vw (03/20/2025 12:09 PM CDT) Anatomical Region Laterality Modality Lower Extremities, Ankle Right Digital Radiography 03/20/2025 12:5 8 PM CDT Narrative 03/20/2025 1:01 PM CDT EXAM DESCRIPTION: XR TIBIA FIBULA RIGHT2 VIEWS; XR ANKLE RIGHT 3 OR MORE VIEWS REASON FOR STUDY: pain Pt complains of leg and ankle pain after a fall x 2 weeks ago. No prior fx or surgery TECHNIQUE: 2 radiographic view(s) of the right tibia and fibula . 3 radiographic views of the right ankle. COMPARISON: None FINDINGS: No acute fracture or malalignment. The ankle mortise is normal. There is soft tissue swelling of the ankle. IMPRESSION: No acute osseous abnormality. Soft tissue swelling of the ankle. THIS IS AN ELECTRONICALLY VERIFIED FINAL REPORT 03/20/2025 1:01 PM - Electronically signed by Silas Perez M.D. KR T: Report ID: [id number] Reading Location: [id number] Procedure Note Silas Perez MD - 03/20/2025 EXAM DESCRIPTION: XR TIBIA FIBULA RIGHT2 VIEWS; XR ANKLE RIGHT 3 OR MOREVIEWS REASON FOR STUDY: pain Pt complains of leg and ankle pain after a fall x 2 weeks ago. No prior fxor surgery TECHNIQUE: 2 radiographic view(s) of the right tibia and fibula . 3 radiographic views of the right ankle. COMPARISON: None FINDINGS: No acute fracture or malalignment. The ankle mortise is normal. There is soft tissue swelling of the ankle. IMPRESSION: No acute osseous abnormality. Soft tissue swelling of the ankle. THIS IS AN ELECTRONICALLY VERIFIED FINAL REPORT 03/20/2025 1:01 PM - Electronically signed by Silas MCDUFFIE T: Report ID: [id number] Reading Location: [id number] Abigail Clay NP IMG XR PROCEDURES Final Result * XR Tibia Fibula Right 2 Vw (03/20/2025 12:08 PM CDT) Anatomical Region Laterality Modality Lower Extremities, Lower Leg Right Dig ital Radiography 03/20/2025 12:5 8 PM CDT Narrative 03/20/2025 1:01 PM CDT EXAM DESCRIPTION: XR TIBIA FIBULA RIGHT2 VIEWS; XR ANKLE RIGHT 3 OR MORE VIEWS REASON FOR STUDY: pain Pt complains of leg and ankle pain after a fall x 2 weeks ago. No prior fx or surgery TECHNIQUE: 2 radiographic view(s) of the right tibia and fibula . 3 radiographic views of the right ankle. COMPARISON: None FINDINGS: No acute fracture or malalignment. The ankle mortise is normal. There is soft tissue swelling of the ankle. IMPRESSION: No acute osseous abnormality. Soft tissue swelling of the ankle. THIS IS AN ELECTRONICALLY VERIFIED FINAL REPORT 03/20/2025 1:01 PM - Electronically signed by Silas MCDUFFIE T: Report ID: [id number] Reading Location: [id number] Procedure Note Silas Perez MD - 03/20/2025 EXAM DESCRIPTION: XR TIBIA FIBULA RIGHT2 VIEWS; XR ANKLE RIGHT 3 OR MOREVIEWS REASON FOR STUDY: pain Pt complains of leg and ankle pain after a fall x 2 weeks ago. No prior fxor surgery TECHNIQUE: 2 radiographic view(s) of the right tibia and fibula . 3 radiographic views of the right ankle. COMPARISON: None FINDINGS: No acute fracture or malalignment. The ankle mortise is normal. There is soft tissue swelling of the ankle. IMPRESSION: No acute osseous abnormality. Soft tissue swelling of the ankle. THIS IS AN ELECTRONICALLY VERIFIED FINAL REPORT 03/20/2025 1:01 PM - Electronically signed by Silas MCDUFFIE T: Report ID: [id number] Reading Location: [place] [address] Abigail Clay TODDLER CAREGIVER IMG XR PROCEDURES Final Result from Last 3 Months Insurance [employer] MEDICARE TNA MEDICARE AETNA MEDICARE Advance Directives For more information, please contact: [phone] * Full Code (Latest Code Status on File) Date Activated Date Inactivated Comments 05/18/2022 3:14 PM 05/20/2022 6:04 PM Care Teams Seed Cutter Relationship Specialty Start Date End Date Johnathan St MD PCP - General Family Practice 03/03/18
--- OUTSIDE RECORDS SUMMARY | 2025-03-20 13:08 | XMS_ITS | Encounter Summary ---
Author Organization [facility] Healthcare Address [address] [place] [address] Care Team Providers Care Departmental Shipping Clerk Name Role Phone Johnathan St MD Primary Care Provider Reason for Visit * Diagnostic Imaging (Routine) - Closed Specialty Diagnoses / Procedures Referred By Jamey brown Referred To Contact Diagnoses Right leg pain Procedures XR Tibia Fibula Right 2 Vw Abigail Clay, BOBBIN FIXER [address] [place] [address] Phone: tel: [facility] Medical Group Referral ID Status Reason Start Date Expiration Date Visits Re quested Visits Authorized [id number] Closed 03/20/2025 04/19/2026 1 1 Encounter Details Date Type Department Care Team (Late st Contact Info) Description 03/20/2025 12:00 PM CDT Ancillary Procedure [facility] Medical Group Imaging at [address] [phone] Right leg pain Social History Tobacco Use Types Packs/Day Years Used Date Smoking Tobacco: Never Smokeless Tobacco: Never Alcohol Use Standard Drinks/Week Comments Yes 3 (1 standard drink = 0.6 oz pur e alcohol) Comments No Sex and Gender Information Value Date Recorded Sex Assigned at Not on file 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 Gender Identity Not on file Sexual Orientation Not on file documented as of this encounter Plan of Treatment Not on file documented as of this encounter Procedures Procedure Name Priority Date/Time Associated Diagnosis Comments XR TIBIA FIBULA RIGHT2 VIEWS Schedule KATHY, Read KATHY (Appt Today, Awaiting Results) 03/20/2025 12:08 PM CDT Right leg pain documented in this encounter Results * XR Tibia Fibula Right 2 Vw [...] signed by Silas MCDUFFIE T: Report ID: [id number] Reading Location: [id number] Procedure Note Silas Perez MD - 03/20/2025 [...] signed by Silas MCDUFFIE T: Report ID: [id number] Reading Location: [id number] Abigail Clay BOBBIN FIXER IMG XR PROCEDURES Final Result documented in this encounter Visit Diagnoses Diagnosis Right leg pain Pain in soft tissues of limb documented in this encounter Care Teams Departmental Shipping Clerk Relationship Specialty Start Date End Date Johnathan St MD PCP - General Family Practice 03/03/18 documented as of this encounter
--- OUTSIDE RECORDS SUMMARY | 2025-03-20 13:08 | XMS_ITS | Continuity of Care Document ---
Author Organization [facility] Address [address] [place] [address] Phone Care Team Providers Care Unemployment Claims Adjudicator Name Role Phone [facility] Unavailable Unavail able Dotty, Samira Unavailable Unavailable Procedures Procedure Date Frames Deluxe Progressive Lens Per Lens Lens-Index>1.66Plas;>1.80Glas 9 Tint Photochromatic, Polycarb 9 Eye Exam, New Patient Refraction Advance Directives Directive Yes / No Effective Date File Name No Information Encounters Encounter Description Practice Location Reason(s) For Visit Diagnoses Date Provider Providers Copied on Encounter [facility], [address] [place] [address] [address], [place], [place], [id number], [place] tel:[phone] [facility] No Information [address] [facility] . [address], [facility] [address], [place], [id number], [place]. tel:[phone] Referring Provider: René Santiago OD A, [address], [place], [address]. tel:[phone] sulting Provider: Samira Storm, [address] [place], [address]. tel:[phone] [facility], [address], [place], [place], [id number], [place] tel:[phone] [facility] No Information Apr-2 3-200 9 Santiago OD René. [address] , [address], [place], [address], [place]. tel:[phone] Family History Family Member Type Diagnosis Age At Onset No Information Payers Payer name Insurance type Covered democrat ID Jeffry patel(s) [employer] Plan CI [id number] Social History Type Description Quantity Date Captured Comments Sex Female Smoking Status No Information Chief Complaint And Reason For Visit No Information Reason For Referral Reason For Referral No Information History Of Present Illness Encounter Date Complaint History Of Prese nt Illness No Information Functional Status Date Functional Assessmen t No Information Instructions Date Instruction Additional Infor mation No Information Assessments Type Assessment Date No Information Patient Care Teams Name Effective Dates (start - stop) Status Members No Information
--- OUTSIDE RECORDS SUMMARY | 2025-03-20 13:08 | XMS_ITS | Encounter Summary ---
Author Organization [facility] Healthcare Address [address] [place] [address] Care Team Providers Care Featheredger And Reducer Machine Name Role Phone Johnathan St MD Primary Care Provider Encounter Details Date Type Department Care Team (Late st Contact Info) Description 03/20/2025 Results Follow-Up [facility] Medical Group Convenient Care at [place] [address] [place] [phone] Abigail Clay NP [address] [place] [address] [address] [place] [address] Social History Tobacco Use Types Packs/Day Years Used Date Smoking Tobacco: Never Smokeless Tobacco: Never Alcohol Use Standard Drinks/Week Comments Yes 3 (1 standard drink = 0.6 oz pur e alcohol) Comments No Sex and Gender Information Value Date Recorded Sex Assigned at Not on file 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
--- OUTSIDE RECORDS SUMMARY | 2025-03-20 13:08 | XMS_ITS | Clinical Summary ---
Author Organization [facility] Address [address] [place] [address] Phone Care Team Providers Care Vat Packer Name Role Phone Johnathan St MD Primary Care Provider Allergies No known active allergies Medications lisinopril (PRINIVIL,ZESTR [place]) 20 MG tablet Take 20 mg by mouth daily 7 Active sotalol (BETAPACE) 80 MG tablet Take 80 mg by mouth daily 8 Active furosemide (LASIX) 40 MG tablet TAKE ONE TABLET DAILY, BUT OK TO TAKE AN EXTRA ONE TABLET IF WORSENING SWELLING. 8 Active ferrous sulfate 325 (65 Fe) MG tablet Take 65 mg of iron by mouth daily Active atorvastatin (LIPITOR) 10 MG tablet Take 10 mg by mouth daily 8 Active apixaban (ELIQUIS) 5 MG tablet Take 5 mg by mouth 2 times daily 7 Active Active Problems Problem Noted Date Diagnosed Date History of cardiomyopathy 09/14/2018 Basal cell carcinoma of scalp 04/26/2018 Overview (07/21/2019): Added automatically from request for surgery [id number] Edema 06/28/2017 Paroxysmal atrial fibrillation 09/27/2016 Overview (07/21/2019): PAF (paroxysmal atrial fibrillation) Last Assessment & Plan: Has remained in sinus rhythm since cardioversion July 07, 2016, on sotalol. Long-term current use of anticoagulant 6 Overview (07/21/2019): Chronic anticoagulation Last Assessment & Plan: No bleeding with Pradaxa Essential hypertension 07/05/2016 Overview (07/21/2019): Essential hypertension Last Assessment & Plan: Hypertension is treated and at goal Immunizations Immunization Administration Dates Next Due Pneumococcal Conjugate 07/21/2019(Deferred: Joselin ent Refused) Family History Medical History Relation Comments Kidney cancer Neg Hx Kidney disease Neg Hx Social History Tobacco Use Types Packs/Day Years Used Date Smoking Tobacco: Never Smokeless Tobacco: Never Alcohol Use Standard Drinks/Week Comments Yes 0 (1 standard drink = 0.6 oz pur e alcohol) occ Comments Unknown Sex and Gender Information Value Date Recorded Sex Assigned at Not on file Legal Sex Female 1:47 PM MDT Gender Identity Not on file Sexual Orientation Not on file Last Filed Vital Signs Vital Sign Reading Time Taken Comments Blood Pressure 122/70 09/01/2019 11:27 AM CDT Pulse 84 09/01/2019 11:27 AM CDT Temperature 36.6 C (97.8 F) 09/01/2019 11:27 AM CDT Respiratory Rate - - Oxygen Saturation - - Inhaled Oxygen Concentration - - Weight 86.6 kg (191 lb) 09/01/2019 11:27 AM CDT Height 167.6 cm (5' 6 ) 09/01/2019 11:27 AM CDT Body Mass Index 30.83 09/01/2019 11:27 AM CDT Plan of Treatment Health Maintenance Due Date Last Done Comments Pneumococcal PPSV23/PCV13 65 + Years / Low and Medium Risk (1 of 4 - PCV) 1992 Influenza Vaccine (Season Ended) 2025 Insurance MEDICARE Care Teams Vat Packer Relationship Specialty Start Date End Date Johnathan St MD [address] [place] [address] PCP - General Internal Medicine 06/12/19
--- OUTSIDE RECORDS SUMMARY | 2025-03-20 13:08 | XMS_ITS | Clinical Summary ---
Author Organization [facility] [address] [facility] [address] [place] [address] Care Team Providers Care Router Tender Name Role Phone Johnathan St MD Primary Care Provider Allergies No known active allergies Medications ferrous [...] (05/10/2018): Added automatically from request for surgery [id number] Basal cell carcinoma of scalp 05/10/2018 Overview (05/10/2018): Added automatically from request for surgery [id number] Encounter for other plastic and reconstructive surgery following medical procedure or healed injury 05/10/2018 Overview (05/10/2018): Added automatically from request for surgery [id number] Basal cell carcinoma (BCC) of scalp 04/26/2018 [...] medications and controlled heart rhythm Cardiomegaly 06/28/2017 Encounters Date Type Department Care Team Description 03/20/2025 12:15 PM CDT Office Visit [facility] Medical Group Convenient Care at [address] [phone] Abigail Clay NP Right leg pain (Primary Dx) 03/20/2025 12:00 PM CDT Ancillary Procedure [facility] Medical Group Imaging at [address] [phone] Right leg pain 03/20/2025 11:55 AM CDT Ancillary Procedure [facility] Medical [facility] Imaging at [address] [phone] Right leg pain 03/20/2025 Results Follow-Up [facility] Group Convenient Care at [address] [phone] Abigail Clay NP from Last 3 Months Surgical History Surgery Date Site/Laterality Comments CATARACT EXTRACTION, BILATERAL 11/05/2016 - 11/04/2017 B ilateral HYSTERECTOMY 11/05/1982 - 11/04/1983 FOOT NEUROMA SURGERY [id number] MOHS SURGERY 04/25/2018 CARDIOVERSION 12/06/2015 - 01/03/2016 Medical History Medical History Date Comments Cardiomyopathy (HCC) Atrial fibrillation (HCC) Cardiomegaly DVT (deep venous thrombosis) (HCC) Cataracts, both eyes 12/2016 Scalp lesion BCC Basal cell carcinoma (BCC) of scalp Kyphosis CHF (congestive heart failure) (HCC) systolic MVP (mitral valve prolapse) Edema pedal Family History Medical History Relation Name Comments Cancer Father Cancer, unknown ; Cause of : Cancer, unknown Heart failure Mother Congestive hea rt failure; Cause of : Congestive heart failure Other Other Family history of Some children have inherited familial CM from ; Anesthesia problems Neg Hx Relation Name Status Comments Father (Age 84) Mother (Age 90) Other Social History Tobacco Use Types Packs/Day Years Used Date Smoking Tobacco: Never Smokeless Tobacco: Never Tobacco Cessation:Counseling Given: Not Answered Alcohol Use Standard Drinks/Week Comments Yes 3 (1 standard drink = 0.6 oz pur e alcohol) Comments No Sex and Gender Information Value Date Recorded Sex Assigned at Not on file 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 Gender Identity Not on file Sexual Orientation Not on file Obstetrics History Last Filed Vital Signs Vital Sign Reading [...] 03/20/2025 11:28 AM CDT Plan of Treatment Health Maintenance Due Date Last Done Comments Depression Screening 1942 Osteoporosis Screening-Bone Density Scan 1942 DTaP/Tdap/Td Vaccine (1 - Tdap) 1953 Hepatitis B Screening 1960 Pneumococcal vaccine 65+ (1 of 1 - PCV) 1992 Zoster Vaccine (1 of 2) 1992 Well Visit 65+ 2007 Fall Risk Assessment 05/20/2023 05/20/2022 Covid-19 Vaccine ( season) 2024 09/12/2021, 01/24/2021, 12/22/2020 Influenza Vaccine (Season Ended) 2025 Procedures Procedure Name Priority Date/Time Associated Diagnosis [...] signed by Silas MCDUFFIE T: Report ID: [id number] Reading Location: [id number] Procedure Note Silas Perez MD - 03/20/2025 [...] signed by Silas MCDUFFIE T: Report ID: [id number] Reading Location: [id number] Abigail Clay COMMERCIAL SUBCONTRACTOR IMG XR PROCEDURES Final Result * XR [...] signed by Silas MCDUFFIE T: Report ID: [id number] Reading Location: [id number] Procedure Note Silas Perez MD - 03/20/2025 [...] signed by Silas MCDUFFIE T: Report ID: [id number] Reading Location: [id number] Abigail Clay COMMERCIAL SUBCONTRACTOR IMG XR PROCEDURES Final Result from Last 3 Months Insurance Advance Directives For more information, please contact: [phone] * Full Code (Latest Code Status on File) Date Activated Date Inactivated Comments 05/18/2022 3:14 PM 05/20/2022 6:04 PM Care Teams Router Tender Relationship Specialty Start Date End Date Johnathan St MD PCP - General Family Practice 03/03/18
--- OUTSIDE RECORDS SUMMARY | 2025-03-20 13:08 | XMS_ITS | Encounter Summary ---
Author Organization [facility] Address [address] [place] [address] Care Team Providers Care Floor Cleaner Name Role Phone Unavailable Primary Care Provider Unavailabl e Encounter Details Date Type Department Care Team (Late st Contact Info) Description 02/05/[address] [facility] DermPath Lab [address] [facility], [place] [id number] Uche Kraft MD [address] [place] [address] Social History Tobacco Use Types Packs/Day Years Used Date Smoking Tobacco: Never Assessed Comments Unknown Sex and Gender Information Value Date Recorded Sex Assigned at Not on file Legal Sex Female 4:12 PM CDT Gender Identity Not on file Sexual Orientation Not on file documented as of this encounter Plan of Treatment Not on file documented as of this encounter Procedures Procedure Name Priority Date/Time Associated Diagnosis Comments DERMATOPATHOLOGY Routine 02/03/2020 12:0 0 AM CDT documented in this encounter Results * DERMATOPATHOLOGY (02/03/2020 12:00 AM CDT) Case Report Dermatopathology Report Case: [id number] Authorizing Provider: Uche Kraft MD Collected: 02/03/2020 12:00 AM Ordering Location: [facility] DermPath Lab Received: 02/05/2020 07:33 AM Pathologist: Krissy Kam MD Specimen: Skin, right scalp 0 1:53 PM CDT DERMATOPATHOLOGY LABORATORY Final Diagnosis Specimen A. SKIN, right scalp: VERRUCA PLANA AND DETACHED FRAGMENTS OF SCALE CRUST WITH BACTERIA AND YEAST FORMS (B07.8) DERMAL FIBROSIS (L90.5) (see microscopic description) 0 1:53 PM CDT DERMATOPATHOLOGY LABORATORY Clinical History AK vs neoplasia. 0 1:53 PM CDT DERMATOPATHOLOGY LABORATORY Gross Description Specimen A: Received is one formalin filled container labeled with the patient's name and designated right scalp. The specimen consists of a shave (2 pieces) biopsy measuring [id number], [id number]. Jar 0+. 0 1:53 PM CDT DERMATOPATHOLOGY LABORATORY Microscopic Description Specimen A. SKIN, right scalp: There is gently papillated epidermal hyperplasia, hypergranulosis, and laminated hyperorthokeratosis . The underlying dermis shows fibrosis and ectatic blood vessels. Detached fragments of stratum corneum show focal parakeratosis and contain collections of neutrophils and aggregates of coccoid bacteria. 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 Additional deeper sections were obtained and reviewed. 0 1:53 PM CDT DERMATOPATHOLOGY LABORATORY Disclaimer An external and internal positive and negative controls are appropriate for the histochemical, immunohistochemical and immunofluorescence stain(s) in this case (if any), except where stated explicitly. The performance characteristics of the stain(s) cited in this report were developed and its performance characteristic determined by the Dermatopathology Laboratory at [facility], directed by Dr. Ricci Cartwright. These tests need not be, and therefore are not, approved by the [place] Food and Drug Administration. The tests are used for clinical purposes. Billing Codes Specimen Charges Stain Charges 11928 1 10262 1 0 1:53 PM CDT DERMATOPATHOLOGY LABORATORY Embedded Images 0 1:53 PM CDT DERMATOPATHOLOGY LABORATORY Pathology/Cytolog y TISSUE SPECIMEN FROM SKIN / Unknown 02/03/2020 02/05/2020 7:33 AM CDT us Uche Kraft MD LAB - PATHOLOGY/CYTOLOGY ORDERAB LES Final Result DERMATOPATHOLOGY LABORATORY [facility] - Department of Dermatology [address] [place] [address], [address] [place] [address], [facility] [phone] documented in this encounter Visit Diagnoses Not on filedocumented in this encounter
--- OUTSIDE RECORDS SUMMARY | 2025-03-20 13:08 | XMS_ITS | Clinical Summary ---
Author Organization [facility] Address [address] [place] [address] Care Team Providers Care Steward/Stewardess Night Name Role Phone Johnathan St MD Primary Care Provider Allergies No known active allergies Medications ELIQUIS 5 mg tablet Take 5 mg by mouth 2 times daily . 10/04/2017 Active furosemide (LASIX) 20 mg tablet Take 40 mg by mouth daily. 0 08/28/2017 Active lisinopril (PRINIVIL) 20 mg tablet Take 1 Tablet by mouth daily. 1 07/22/2017 Active sotalol (BETAPACE) 80 mg tablet Take 1 Tablet by mouth 2 times daily. 1 08/30/2017 Active traMADol (ULTRAM) 50 mg tablet Take 1 Tablet by mouth every 8 hours as needed . 10/03/2017 Active Active Problems Problem Noted Date Diagnosed Date Hip pain, acute, right 10/11/2017 Secondary hypercoagulable state 10/11/2017 Family History Medical History Relation Name Comments Cancer Father Healthy Mother Relation Name Status Comments Father Mother Social History Tobacco Use Types Packs/Day Years Used Date Smoking Tobacco: Never Smokeless Tobacco: Never Alcohol Use Standard Drinks/Week Comments Yes 1 (1 standard drink = 0.6 oz pur e alcohol) Comments No Sex and Gender Information Value Date Recorded Sex Assigned at Not on file Legal Sex Female 2:15 PM RESPIRATORY PHYSICIAN Gender Identity Not on file Sexual Orientation Not on file Last Filed Vital Signs Vital Sign Reading Time Taken Comments Blood Pressure 119/69 11/14/2017 2:56 PM RESPIRATORY PHYSICIAN Pulse 70 11/14/2017 2:56 PM RESPIRATORY PHYSICIAN Temperature 36.8 C (98.3 F) 11/14/2017 2:56 PM RESPIRATORY PHYSICIAN Respiratory Rate 18 11/14/2017 2:56 PM RESPIRATORY PHYSICIAN Oxygen Saturation 99% 10/11/2017 2:37 PM RESPIRATORY PHYSICIAN Inhaled Oxygen Concentration - - Weight 86.6 kg (191 lb) 11/14/2017 2:56 PM RESPIRATORY PHYSICIAN Height 170.2 cm (5' 7 ) 11/14/2017 2:56 PM RESPIRATORY PHYSICIAN Body Mass Index 29.91 11/14/2017 2:56 PM RESPIRATORY PHYSICIAN Plan of Treatment Health Maintenance Due Date Last Done Comments DTAP/TDAP/TD VACCINES (1 - Tdap) 1961 PNEUMOCOCCAL VACCINE 50+ YEARS (1 of 1 - PCV) 12/30/18 93 ZOSTER VACCINE (1 of 2) 1992 OSTEOPOROSIS SCREENING 2007 RSV VACCINE (60+ or ) (1 - 1-dose 75+ series) 2017 INFLUENZA VACCINE (#1) 2024 Insurance [facility] [id number] Care Teams Steward/Stewardess Night Relationship Specialty Start Date End Date Johnathan St MD [address] [place] [address] PCP - General Family Practice 10/11/17
--- OUTSIDE RECORDS SUMMARY | 2025-03-20 13:08 | XMS_ITS | Clinical Summary ---
Author Organization [facility] Address [address] [place] [address] Care Team Providers Care Senior Landscape Architect Name Role Phone Unavailable Primary Care Provider Unavailabl e Source Comments [facility],non-owned Affiliates and Associated Physician Practices is amultiple site organization consisting of ambulatory clinics and hospital sitesin [place], [place], [place] and [place]. This disclosure is being madepursuant to the Care Everywhere program and may not contain all information available regarding this patient. Last updated 18.[facility] Social History Tobacco Use Types Packs/Day Years Used Date Smoking Tobacco: Never Assessed Comments Unknown Sex and Gender Information Value Date Recorded Sex Assigned at Not on file Legal Sex Female 4:12 PM CDT Gender Identity Not on file Sexual Orientation Not on file Plan of Treatment Health Maintenance Due Date Last Done Comments BONE DENSITY TESTING 1942 DTAP/TDAP/TD VACCINES (1 - Tdap) 1961 PNEUMOCOCCAL VACCINE 50+ (1 of 1 - PCV) 1992 ZOSTER VACCINE (1 of 2) 1992 Respiratory Syncytial Virus (RSV) Vaccine Pt: or over 60 yrs (1 - 1-dose 75+ series) 2017 COVID-19 VACCINE ( - 2023-2 5 season) 2024 DEPRESSION SCREENING 11/05/2024 INFLUENZA VACCINE (Season Ended) 2025 HEPATITIS B VACCINE Aged Out No longe r eligible based on patient's age to complete this topic HIB VACCINE Aged Out No longer eligi ble based on patient's age to complete this topic HPV VACCINE Aged Out No longer eligi ble based on patient's age to complete this topic MENINGOCOCCAL (Group B) VACC INE SHARED DECISION-MAKING Aged Out No longer eligibl e based on patient's age to complete this topic MENINGOCOCCAL GROUPS A/C/Y/W VACCINE Aged Out No longer eligible b ased on patient's age to complete this topic Insurance [employer] MANAGED MEDICARE ADV
--- OUTSIDE RECORDS SUMMARY | 2025-03-20 13:08 | XMS_ITS | Encounter Summary ---
Author Organization [facility] Address [address] [place] [address] Care Team Providers Care Presser Machine Name Role Phone Johnathan St MD Primary Care Provider Encounter Details Date Type Department Care Team (Late st Contact Info) Description 03/20/2025 11:55 AM CDT Ancillary Procedure [facility] Imaging at [address] [address] Right leg pain Social History Tobacco Use Types Packs/Day Years Used Date Smoking Tobacco: Never Smokeless Tobacco: Never Alcohol Use Standard Drinks/Week Comments Yes 3 (1 standard drink = 0.6 oz pur e alcohol) Comments No Sex and Gender Information Value Date Recorded Sex Assigned at Not on file Legal Sex Female 4:12 AM ELEVATOR TROUBLESHOOTER Gender Identity Not on file Sexual Orientation Not on file documented as of this encounter Plan of Treatment Not on file documented as of this encounter Procedures Procedure Name Priority Date/Time Associated Diagnosis Comments XR ANKLE RIGHT 3 OR MORE VIEWS Schedule KATHY, Read KATHY (Appt Today, Awaiting Results) 03/20/2025 12:09 PM CDT Right leg pain documented in this encounter Results * XR Ankle Right 3+ Vw [...] signed by Silas MCDUFFIE T: Report ID: [id number] Reading Location: [id number] Procedure Note Silas Perez MD - 03/20/2025 [...] signed by Silas MCDUFFIE T: Report ID: [id number] Reading Location: [id number] Abigail Clay DIRECTOR NEWS IMG XR PROCEDURES Final Result documented in this encounter Visit Diagnoses Diagnosis Right leg pain Pain in soft tissues of limb documented in this encounter Care Teams Presser Machine Relationship Specialty Start Date End Date Johnathan St MD PCP - General Family Practice 03/03/18 documented as of this encounter
--- OUTSIDE RECORDS SUMMARY | 2025-03-20 13:08 | XMS_ITS ---
Author Organization [facility] [address] Address [address] [place] [address] Care Team Providers Care Computer Education Professor Name Role Phone Johnathan St MD Primary Care Provider Active Problems Problem Noted Date Diagnosed Date [...] (05/10/2018): Added automatically from request for surgery [id number] Basal cell carcinoma of scalp 05/10/2018 Overview (05/10/2018): Added automatically from request for surgery [id number] Encounter for other plastic and reconstructive surgery following medical procedure or healed injury 05/10/2018 Overview (05/10/2018): Added automatically from request for surgery [id number] Basal cell carcinoma (BCC) of scalp 04/26/2018 [...] CDT): Hypertension is treated and at goal Current Treatment and Therapy Plans No current plan information found. Past Treatment and Therapy Plans No past plan information found. Lifetime Dose Tracking * Chemical Lifetime Dose Automatic Entry Manual Entr y DLP 1,793 mGycm 1,793 mGycm 0 mGycm Resolved Problems Problem Noted Date Diagnosed Date [...]
--- OUTSIDE RECORDS SUMMARY | 2025-03-20 13:08 | XMS_ITS | Encounter Summary ---
Author Organization [facility] Address [address] [place] [address] Care Team Providers Care Induction Coordination Power Engineer Name Role Phone Johnathan St MD Primary Care Provider Reason for Referral * Diagnostic Imaging (Routine) - Closed Specialty Diagnoses / Procedures Referred By Jamey brown Referred To Contact Diagnoses Right leg pain Procedures XR Tibia Fibula Right 2 Vw Abigail Clay NP [address] [address] Phone: tel: [facility] Medical Group Referral ID Status Reason Start Date Expiration Date Visits Re quested Visits Authorized [id number] Closed 03/20/2025 04/19/2026 1 1 Reason for Visit * Reason Comments Ankle Problem Patient here for c/o ankle swelling post fall on 03/08 Encounter Details Date Type Department Care Team (Late st Contact Info) Description 03/20/2025 12:15 PM CDT Office Visit [facility] Convenient Care at [address] [address] Abigail Clay NP [address] [address] Right leg pain (Primary Dx) Social History Tobacco Use Types Packs/Day Years Used Date Smoking Tobacco: Never Smokeless Tobacco: Never Alcohol Use Standard Drinks/Week Comments Yes 3 (1 standard drink = 0.6 oz pur e alcohol) Comments No Sex and Gender Information Value Date Recorded Sex Assigned at Not on file Legal Sex Female 4:12 AM REGROOVER Gender Identity Not on file Sexual Orientation Not on file documented as of this encounter Last Filed Vital Signs Vital Sign Reading [...] Mass Index 27.25 03/20/2025 11:28 AM CDT documented in this encounter Plan of Treatment Not on file documented as of this encounter Results * XR Ankle Right [...] Silas Perez M.D. KR T: Report ID: [id number] Reading Location: [id number] Procedure Note Silas Perez MD - 03/20/2025 [...] signed by Silas MCDUFFIE T: Report ID: [id number] Reading Location: [id number] Abigail Clay TOOLS PROGRAMMER IMG XR PROCEDURES Final Result * XR [...] signed by Silas MCDUFFIE T: Report ID: [id number] Reading Location: [id number] Procedure Note Silas Perez MD - 03/20/2025 [...] signed by Silas MCDUFFIE T: Report ID: [id number] Reading Location: [place] [address] Abigail Clay TOOLS PROGRAMMER IMG XR PROCEDURES Final Result documented in this encounter Visit Diagnoses Diagnosis Right leg pain- Primary Pain in soft tissues of limb Right leg pain Pain in soft tissues of limb Right leg pain Pain in soft tissues of limb documented in this encounter Care Teams Induction Coordination Power Engineer Relationship Specialty Start Date End Date Johnathan St MD PCP - General Family Practice 03/03/18 documented as of this encounter
[2025-03-20 13:41] VITALS: BP 129/61; PULSE 80; RESP 16; TEMP 36.5; O2SAT 98
--- NOTE | 2025-03-20 15:09 | ED.GENADULT ---
HPI - General Adult General Chief complaint: Extremity Injury, Lower Stated complaint: Sent by for Ultrasound right ankle Time Seen by Provider: 03/20/25 15:09 Focused HPI: Carmen Arzate is an 84 y/o female pt reports that she fell 2 weeks ago on to her right side and twisted her right ankle .She reports she has had increased pain and bruising from her right hip down to her right ankle since fall. She had an XR done at the of her right ankle with dx of ankle sprain She has significant swelling to right lower extremity hx of blood clots but on eliquis, states she has been sent from the to get r/o of blood clot GENERAL: Well-appearing, well-nourished, and in no acute distress. HEAD: Normocephalic, atraumatic. CHEST: Clear to auscultation. No respiratory distress. HEART: Regular rate and rhythm. NEURO: Alert and oriented x3. Patient screened in triage and initial orders placed. Additional care and disposition to be based upon diagnostic testing and treatment. Related Data Home Medications Medication Instructions Recorded Confirmed Last Taken Type apixaban 5 mg tablet (Eliquis) 5 mg PO BID 03/08/21 05/17/22 Unknown History atorvastatin 10 mg tablet 10 mg PO HS 03/08/21 05/17/22 Unknown History ferrous sulfate 325 mg (65 mg 65 mg PO DAILY 03/08/21 05/17/22 Unknown History iron) tablet furosemide 40 mg tablet 40 mg PO QAM 03/08/21 05/17/22 Unknown History lisinopril 10 mg tablet 10 mg PO DAILY 03/08/21 05/17/22 Unknown History metoprolol succinate 50 mg 50 mg PO DAILY 03/08/21 05/17/22 Unknown History tablet,extended release 24 hr multivitamin 1 tablet PO DAILY 03/08/21 05/17/22 Unknown History sotalol 80 mg tablet 40 mg PO DAILY 05/17/22 05/17/22 Unknown History Allergies Allergy/AdvReac Type Severity Reaction Status Date / Time No Known Allergies Allergy Verified 03/20/25 13:05 [facility] Past Medical History Medical History (Updated 03/21/25 @ 00:00 by Francesco Hess) Osteoarthritis of right knee A-fib H/O blood clots Family History Family History Father Malignant neoplasm of prostate Other Family history of arthritis Family history of cardiovascular disease Hypertension Social History Social History Smoking status: Never smoker Second hand tobacco smoke exposure: Yes Alcohol intake: current Drinks per week: 7 Substance use: never Substance use type: does not use Living arrangements: with family Occupation/Education: retired Gender identity (if verbalized by the patient): Female Spiritual care concerns: No Course Vital Signs Vital signs: Vital Signs Temperature 36.5 C 03/20/25 13:41 Pulse Rate 80 03/20/25 13:41 Respiratory Rate 16 03/20/25 13:41 Blood Pressure 129/61 03/20/25 13:41 Pulse Oximetry 98 03/20/25 13:41 Oxygen Delivery Room Air 03/20/25 13:41 Temperature 36.5 C 03/20/25 13:41 Pulse Rate 79 03/20/25 18:20 Respiratory Rate 18 03/20/25 18:20 Blood Pressure 115/80 03/20/25 18:20 Pulse Oximetry 98 03/20/25 18:20 Oxygen Delivery Room Air 03/20/25 13:41 Medical Decision Making Vital Signs Vital Signs: Vital Signs Temperature 36.5 C 03/20/25 13:41 Pulse Rate 80 03/20/25 13:41 Respiratory Rate 16 03/20/25 13:41 Blood Pressure 129/61 03/20/25 13:41 Pulse Oximetry 98 03/20/25 13:41 Oxygen Delivery Room Air 03/20/25 13:41 Temperature 36.5 C 03/20/25 13:41 Pulse Rate 79 03/20/25 18:20 Respiratory Rate 18 03/20/25 18:20 Blood Pressure 115/80 03/20/25 18:20 Pulse Oximetry 98 03/20/25 18:20 Oxygen Delivery Room Air 03/20/25 13:41 Discharge Plan Discharge Clinical Impression: Ankle sprain and strain Patient Disposition: Home Condition: Stable Instructions: Antibiotic Form, Ankle Sprain (DC) Patient Language: [place] Islander Prescriptions: No Action ferrous sulfate 325 mg (65 mg iron) tablet 65 mg PO DAILY metoprolol succinate 50 mg tablet extended release 24 hr 50 mg PO DAILY Eliquis 5 mg tablet 5 mg PO BID lisinopril 10 mg tablet 10 mg PO DAILY furosemide 40 mg tablet 40 mg PO QAM atorvastatin 10 mg tablet 10 mg PO HS multivitamin Tablet 1 tablet PO DAILY sotalol 80 mg Tablet 40 mg PO DAILY Follow-up/Referrals: Johanna*,Juliet Michaels MD [Primary Care Provider] -
[2025-03-20 15:56] VITALS: BP 110/72; PULSE 73; RESP 16; O2SAT 100
--- NOTE | 2025-03-20 16:32 | ED_ITS ---
HPI - Extremity Injury (Lower) General Chief Complaint: Extremity Injury, Lower Stated Complaint: Sent by for Ultrasound right ankle Time Seen by Provider: 03/20/25 15:09 History of Present Illness HPI Narrative: Pt was reaching for space heater and twisted ankle and fell on right side. This occured 03/08. Pt has persistent selling and pain to right foot and ankle. [facility] system. Pt has some bruising to hip but it does not hurt and her knee is the same as always. Related Data Home Medications Medication Instructions Recorded Confirmed Last Taken Type apixaban 5 mg tablet (Eliquis) 5 mg PO BID 03/08/21 05/17/22 Unknown History atorvastatin 10 mg tablet 10 mg PO HS 03/08/21 05/17/22 Unknown History ferrous sulfate 325 mg (65 mg 65 mg PO DAILY 03/08/21 05/17/22 Unknown History iron) tablet furosemide 40 mg tablet 40 mg PO QAM 03/08/21 05/17/22 Unknown History lisinopril 10 mg tablet 10 mg PO DAILY 03/08/21 05/17/22 Unknown History metoprolol succinate 50 mg 50 mg PO DAILY 03/08/21 05/17/22 Unknown History tablet,extended release 24 hr multivitamin 1 tablet PO DAILY 03/08/21 05/17/22 Unknown History sotalol 80 mg tablet 40 mg PO DAILY 05/17/22 05/17/22 Unknown History Allergies Allergy/AdvReac Type Severity Reaction Status Date / Time No Known Allergies Allergy Verified 03/20/25 13:05 Review of Systems Review of Systems: All systems reviewed & are unremarkable except as noted in HPI and below PMFSH Past Medical History Medical History (Updated 03/20/25 @ 18:09 by Sydni Cali III, DO) Osteoarthritis of right knee A-fib H/O blood clots Family History Family History Father Malignant neoplasm of prostate Other Family history of arthritis Family history of cardiovascular disease Hypertension Social History Social History Smoking status: Never smoker Second hand tobacco smoke exposure: Yes Alcohol intake: current Drinks per week: 7 Substance use: never Substance use type: does not use Living arrangements: with family Occupation/Education: retired Gender identity (if verbalized by the patient): Female Spiritual care concerns: No Exam Const: General: healthy appearing and no acute distress Nutritional Appearance: well nourished Orientation/consciousness: patient oriented x3 Limitations: no limitations Resp: Effort & Inspection: normal respiratory effort Cardio: Rate: regular rate Rhythm: regular rhythm GI: GI Palp: Yes Soft to palpation Skin: General skin exam: normal color Wounds: no wounds Neuro: General: patient oriented x3, moves all extremities and no focal motor deficits Extrem: Other: swelling and tenderness to medial and lateral ankle. some swelling to top of right foot. Psych: Mental Status: mental status grossly normal Affect: normal affect Attitude: cooperative Course Vital Signs Vital signs: Vital Signs Temperature 97.7 F 03/20/25 13:41 Pulse Rate 80 03/20/25 13:41 Respiratory Rate 16 03/20/25 13:41 Blood Pressure 129/61 03/20/25 13:41 Pulse Oximetry 98 03/20/25 13:41 Oxygen Delivery Room Air 03/20/25 13:41 Temperature 97.7 F 03/20/25 13:41 Pulse Rate 73 03/20/25 15:56 Respiratory Rate 16 03/20/25 15:56 Blood Pressure 110/72 03/20/25 15:56 Pulse Oximetry 100 03/20/25 15:56 Oxygen Delivery Room Air 03/20/25 13:41 MDM - Extremity Injury (Lower) MDM Narrative Medical decision making narrative: Pt presents with persistent swelling and pain in right ankle and foot. unable to see xrays here so will order right foot and ankle. will cancel hip and knee. venous doppler ordered at triage neg. xray ankle and foot neg. Discharge Plan Discharge Clinical Impression: Ankle sprain and strain Patient Disposition: Home Condition: Stable Instructions: Antibiotic Form, Ankle Sprain (DC) Patient Language: Tunisian Prescriptions: No Action ferrous sulfate 325 mg (65 mg iron) tablet 65 mg PO DAILY metoprolol succinate 50 mg tablet extended release 24 hr 50 mg PO DAILY Eliquis 5 mg tablet 5 mg PO BID lisinopril 10 mg tablet 10 mg PO DAILY furosemide 40 mg tablet 40 mg PO QAM atorvastatin 10 mg tablet 10 mg PO HS multivitamin Tablet 1 tablet PO DAILY sotalol 80 mg Tablet 40 mg PO DAILY Follow-up/Referrals: Erna*Maninder*,Juliet Michaels MD [Primary Care Provider] -
--- OUTSIDE RECORDS SUMMARY | 2025-03-20 16:42 | XMS_ITS | Clinical Summary ---
Author Organization [facility] Address [address] [place] [address] Phone Care Team Providers Care Inside Sales Recruiter Name Role Phone Johnathan St MD Primary [...] (07/21/2019): Added automatically from request for surgery [id number] Edema 06/28/2017 Paroxysmal atrial fibrillation 09/27/2016 Overview [...] (Season Ended) 2025 Insurance MEDICARE Care Teams Inside Sales Recruiter Relationship Specialty Start Date End Date Johnathan St MD [address] [place] [address] PCP - General Internal Medicine 06/12/19
--- OUTSIDE RECORDS SUMMARY | 2025-03-20 16:42 | XMS_ITS | Clinical Summary ---
Author Organization [facility] [address] Address [address] [facility] [address] [place] [address] Care Team Providers Care Chief Sales Officer Name Role Phone Johnathan St MD Primary [...] (05/10/2018): Added automatically from request for surgery [id number] Basal cell carcinoma of scalp 05/10/2018 Overview (05/10/2018): Added automatically from request for surgery [id number] Encounter for other plastic and reconstructive surgery following medical procedure or healed injury 05/10/2018 Overview (05/10/2018): Added automatically from request for surgery [id number] Basal cell carcinoma (BCC) of scalp 04/26/2018 [...] Description 03/20/2025 12:15 PM CDT Office Visit [facility] Medical Group Convenient Care at [address] [address] Abigail Clay NP Right leg pain (Primary Dx) 03/20/2025 12:00 PM CDT Ancillary Procedure [facility] Medical Group Imaging at [address] [phone] Right leg pain 03/20/2025 11:55 AM CDT Ancillary Procedure [facility] Medical [facility] Imaging at [address] [phone] Right leg pain 03/20/2025 Results Follow-Up [facility] Group Convenient Care at [address] [address] Abigail Clay NP from Last 3 Months Surgical History Surgery Date Site/Laterality Comments CATARACT EXTRACTION, BILATERAL 11/05/2016 - 11/04/2017 B ilateral HYSTERECTOMY 11/05/1982 - 11/04/1983 FOOT NEUROMA SURGERY [id number] MOHS SURGERY 04/25/2018 CARDIOVERSION 12/06/2015 - 01/03/2016 [...] on file 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 KR T: Report ID: [id number] Reading Location: [id number] Procedure Note Silas Perez MD - 03/20/2025 [...] Silas Perez M.D. KR T: Report ID: [id number] Reading Location: [id number] Abigail Clay GUM SPRAYER IM XR PROCEDURES Final Result * XR Tibia [...] signed by Silas MCDUFFIE T: Report ID: [id number] Reading Location: [id number] Procedure Note Silas Perez MD - 03/20/2025 [...] 1:01 PM - Electronically signed by Silas Yuan.D. KR T: Report ID: [id number] Reading Location: [place] [address] Abigail Clay GUM SPRAYER IMG XR PROCEDURES Final Result from Last 3 Months Insurance AET MEDICARE AET MEDICARE Advance Directives For more information, please contact: [phone] * Full Code (Latest Code Status on File) Date Activated Date Inactivated Comments 05/18/2022 3:14 PM 05/20/2022 6:04 PM Care Teams Chief Sales Officer Relationship Specialty Start Date End Date Johnathan St MD PCP - General Family Practice 03/03/18
--- OUTSIDE RECORDS SUMMARY | 2025-03-20 16:42 | XMS_ITS | Clinical Summary ---
Author Organization [facility] Address [address] [place] [address] Care Team Providers Care Charge Poster Name Role Phone Johnathan St MD Primary [...] on file Legal Sex Female 2:15 PM SOIL EXPERT Gender Identity Not on file Sexual Orientation Not on file Last Filed Vital Signs Vital Sign Reading Time Taken Comments Blood Pressure 119/69 11/14/2017 2:56 PM SOIL EXPERT Pulse 70 11/14/2017 2:56 PM SOIL EXPERT Temperature 36.8 C (98.3 F) 11/14/2017 2:56 PM SOIL EXPERT Respiratory Rate 18 11/14/2017 2:56 PM SOIL EXPERT Oxygen Saturation 99% 10/11/2017 2:37 PM SOIL EXPERT Inhaled Oxygen Concentration - - Weight 86.6 kg (191 lb) 11/14/2017 2:56 PM SOIL EXPERT Height 170.2 cm (5' 7 ) 11/14/2017 2:56 PM SOIL EXPERT Body Mass Index 29.91 11/14/2017 2:56 PM SOIL EXPERT Plan of Treatment Health Maintenance Due Date Last Done Comments DTAP/TDAP/TD VACCINES (1 - Tdap) 1961 PNEUMOCOCCAL VACCINE 50+ YEARS (1 of 1 - PCV) 12/30/18 93 ZOSTER VACCINE (1 of 2) 1992 OSTEOPOROSIS SCREENING 2007 RSV VACCINE (60+ or ) (1 - 1-dose 75+ series) 2017 INFLUENZA VACCINE (#1) 2024 Insurance [facility] [id number] Care Teams Charge Poster Relationship Specialty Start Date End Date Johnathan St MD [address] [place] [address] PCP - General Family Practice 10/11/17
--- OUTSIDE RECORDS SUMMARY | 2025-03-20 16:42 | XMS_ITS | Encounter Summary ---
Author Organization [facility] Healthcare Address [address] [place] [address] Care Team Providers Care Fabric Machine Operator Name Role Phone Johnathan St MD Primary Care Provider Reason for Referral * Diagnostic Imaging (Routine) - Closed Specialty Diagnoses / Procedures Referred By Jamey brown Referred To Contact Diagnoses Right leg pain Procedures XR Tibia Fibula Right 2 Vw Abigail Clay NP [address] [address] Phone: tel: [facility] Medical Group Referral ID Status Reason Start Date Expiration Date Visits Re quested Visits Authorized [id number] Closed 03/20/2025 04/19/2026 1 1 Reason for Visit * Reason Comments Ankle Problem Patient here for c/o ankle swelling post fall on 03/08 Encounter Details Date Type Department Care Team (Late st Contact Info) Description 03/20/2025 12:15 PM CDT Office Visit [facility] Medical Group Convenient Care at [address] [address] Abigail Clay NP [address] [address] Right leg pain (Primary Dx) Social History Tobacco Use Types Packs/Day Years Used Date Smoking Tobacco: Never Smokeless Tobacco: Never Alcohol Use Standard Drinks/Week Comments Yes 3 (1 standard drink = 0.6 oz pur e alcohol) Comments No Sex and Gender Information Value Date Recorded Sex Assigned at Not on file 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 KR T: Report ID: [id number] Reading Location: [id number] Procedure Note Silas Perez MD - 03/20/2025 [...] signed by Silas MCDUFFIE T: Report ID: [id number] Reading Location: [id number] Abigail Clay NP IMG XR PROCEDURES Final [...] signed by Silas MCDUFFIE T: Report ID: [id number] Reading Location: [id number] Procedure Note Silas Perez MD - 03/20/2025 [...] signed by Silas MCDUFFIE T: Report ID: [id number] Reading Location: [place] [address] Abigail Clay CIRCULATION CLERK IMG XR PROCEDURES Final Result documented in this encounter Visit Diagnoses Diagnosis Right leg pain- Primary Pain in soft tissues of limb Right leg pain Pain in soft tissues of limb Right leg pain Pain in soft tissues of limb documented in this encounter Care Teams Fabric Machine Operator Relationship Specialty Start Date End Date Johnathan St MD PCP - General Family Practice 03/03/18 documented as of this encounter
--- OUTSIDE RECORDS SUMMARY | 2025-03-20 16:42 | XMS_ITS ---
Author Organization [facility] [address] Address [address] [place] [address] Care Team Providers Care Attraction Attendant Name Role Phone Johnathan St MD Primary [...] (05/10/2018): Added automatically from request for surgery [id number] Basal cell carcinoma of scalp 05/10/2018 Overview (05/10/2018): Added automatically from request for surgery [id number] Encounter for other plastic and reconstructive surgery following medical procedure or healed injury 05/10/2018 Overview (05/10/2018): Added automatically from request for surgery [id number] Basal cell carcinoma (BCC) of scalp 04/26/2018 [...]
--- OUTSIDE RECORDS SUMMARY | 2025-03-20 16:42 | XMS_ITS | Encounter Summary ---
Author Organization [facility] Healthcare Address [address] [place] [address] Care Team Providers Care Water Quality Technician Name Role Phone Johnathan St MD Primary Care Provider Reason for Visit * Diagnostic Imaging (Routine) - Closed Specialty Diagnoses / Procedures Referred By Jamey brown Referred To Contact Diagnoses Right leg pain Procedures XR Tibia Fibula Right 2 Vw Abigail Clay, JAVA J2EE LEAD [address] [place] [address] Phone: tel: [facility] Medical Group Referral ID Status Reason Start Date Expiration Date Visits Re quested Visits Authorized [id number] Closed 03/20/2025 04/19/2026 1 1 Encounter Details Date Type Department Care Team (Late st Contact Info) Description 03/20/2025 12:00 PM CDT Ancillary Procedure [facility] Medical Group Imaging at [address] [address] Right leg pain Social History Tobacco Use Types Packs/Day Years Used Date Smoking Tobacco: Never Smokeless Tobacco: Never Alcohol Use Standard Drinks/Week Comments Yes 3 (1 standard drink = 0.6 oz pur e alcohol) Comments No Sex and Gender Information Value Date Recorded Sex Assigned at Not on file 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
--- OUTSIDE RECORDS SUMMARY | 2025-03-20 16:42 | XMS_ITS | Referral Summary ---
Author Organization [facility] [address] [facility] [address] Address [address] [facility] [address] [place] [address] Care Team Providers Care Felt Hat Steamer Name Role Phone Johnathan St MD Primary Care Provider Encounters Date Type Department Care Team Description 03/20/2025 Results Follow-Up [facility] Medical Group Convenient Care at [address] [phone] Abigail Clay NP 03/20/2025 12:00 PM CDT Ancillary Procedure [facility] Medical Group Imaging at [address] [phone] Right leg pain 03/20/2025 11:55 AM CDT Ancillary Procedure [facility] Medical Group Imaging at [address] [phone] Right leg pain 03/20/2025 12:15 PM CDT Office Visit [facility] Medical Group Convenient Care at [address] [phone] Abigail Clay NP Right leg pain (Primary [...] (05/10/2018): Added automatically from request for surgery [id number] Basal cell carcinoma of scalp 05/10/2018 Overview (05/10/2018): Added automatically from request for surgery [id number] Encounter for other plastic and reconstructive surgery following medical procedure or healed injury 05/10/2018 Overview (05/10/2018): Added automatically from request for surgery [id number] Basal cell carcinoma (BCC) of scalp 04/26/2018 [...] on file 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 KR T: Report ID: [id number] Reading Location: [id number] Procedure Note Silas Perez MD - 03/20/2025 [...] signed by Silas MCDUFFIE T: Report ID: [id number] Reading Location: [place] [address] Abigail Clay SHRIMPER IMG XR PROCEDURES Final Result * XR [...] signed by Silas MCDUFFIE T: Report ID: [id number] Reading Location: [id number] Procedure Note Silas Perez MD - 03/20/2025 [...] signed by Silas MCDUFFIE T: Report ID: [id number] Reading Location: [place] [address] Abigail Clay SHRIMPER IMG XR PROCEDURES Final Result from Last 3 Months Insurance [facility] Address: [place] [id number] [place] [phone] [facility] MEDICARE AETNA MEDICARE Advance Directives For more information, please contact: [phone] * Full Code (Latest Code Status on File) Date Activated Date Inactivated Comments 05/18/2022 3:14 PM 05/20/2022 6:04 PM Care Teams Felt Hat Steamer Relationship Specialty Start Date End Date Johnathan St MD PCP - General Family Practice 03/03/18
--- OUTSIDE RECORDS SUMMARY | 2025-03-20 16:42 | XMS_ITS | Encounter Summary ---
Author Organization [facility] Healthcare Address [address] [place] [address] Care Team Providers Care Mobile Health Vehicle Operator Name Role Phone Johnathan St MD Primary Care Provider Encounter Details Date Type Department Care Team (Late st Contact Info) Description 03/20/2025 11:55 AM CDT Ancillary Procedure [facility] Medical Group Imaging at [address] [address] Right leg pain Social History Tobacco Use Types Packs/Day Years Used Date Smoking Tobacco: Never Smokeless Tobacco: Never Alcohol Use Standard Drinks/Week Comments Yes 3 (1 standard drink = 0.6 oz pur e alcohol) Comments No Sex and Gender Information Value Date Recorded Sex Assigned at Not on file 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 Gender Identity Not on file Sexual Orientation [...] signed by Silas MCDUFFIE T: Report ID: [id number] Reading Location: [id number] Procedure Note Silas Perez MD - 03/20/2025 [...] signed by Silas MCDUFFIE T: Report ID: [id number] Reading Location: [id number] Abigail Clay HUMAN RESOURCES ASSISTANT MANAGER IMG XR PROCEDURES Final Result documented in this encounter Visit Diagnoses Diagnosis Right leg pain Pain in soft tissues of limb documented in this encounter Care Teams Mobile Health Vehicle Operator Relationship Specialty Start Date End Date Johnathan St MD PCP - General Family Practice 03/03/18 documented as of this encounter
--- OUTSIDE RECORDS SUMMARY | 2025-03-20 16:42 | XMS_ITS | Encounter Summary ---
Author Organization [facility] Address [address] [place] [address] Care Team Providers Care Weigh Box Tender Name Role Phone Unavailable Primary Care Provider Unavailabl e Encounter Details Date Type Department Care Team (Late st Contact Info) Description 02/05/2020 Lab Requisition [facility] [address] [facility] [place] [phone] Uche Kraft MD [address] [place] [address] Social History Tobacco Use Types [...] AM CDT) Case Report Dermatopathology Report Case: [id number] Authorizing Provider: Uche Kraft MD Collected: 02/03/2020 12:00 AM Ordering Location: [facility] Received: 02/05/2020 07:33 AM Pathologist: [...] of a shave (2 pieces) biopsy measuring [id number], [id number]. Jar 0+. 0 1:53 PM CDT DERMATOPATHOLOGY [...] characteristic determined by the Dermatopathology Laboratory at [facility], directed by Dr. Ricci Cartwright. These tests need not be, and therefore are not, approved by the [place] Food and Drug Administration. The tests are used for clinical purposes. Billing Codes Specimen Charges Stain Charges 12017 1 33226 1 0 1:53 PM CDT DERMATOPATHOLOGY LABORATORY Embedded Images 0 1:53 PM CDT DERMATOPATHOLOGY LABORATORY Pathology/Cytolog y TISSUE SPECIMEN FROM SKIN / Unknown 02/03/2020 02/05/2020 7:33 AM CDT us Uche Kraft MD LAB - PATHOLOGY/CYTOLOGY ORDERAB LES Final Result DERMATOPATHOLOGY LABORATORY [facility] - Department of Dermatology [address] [place] [address], [address]th [place] [address], [facility] [phone] documented in this encounter Visit Diagnoses Not on filedocumented in this encounter
--- OUTSIDE RECORDS SUMMARY | 2025-03-20 16:42 | XMS_ITS | Continuity of Care Document ---
Author Organization [facility] Address [address] [place] [address] Phone Care Team Providers Care Security Public Safety Officer Name Role Phone [facility] Unavailable Unavail able Dotty, Samira Unavailable Unavailable Procedures Procedure Date Frames Deluxe Progressive Lens Per Lens Lens-Index>1.66Plas;>1.80Glas 9 Tint Photochromatic, Polycarb 9 Eye Exam, New Patient Refraction Advance Directives Directive Yes / No Effective Date File Name No Information Encounters Encounter Description Practice Location Reason(s) For Visit Diagnoses Date Provider Providers Copied on Encounter [facility], [address] [place] [address], [place], [place], [id number], [place] tel:[phone] [facility] No Information [address] [facility] . [address] [facility], [facility] [address], [place], [address], [place]. tel:[phone] Referring Provider: René Santiago OD A, [address], [place], [address]. tel:[phone] sulting Provider: Samira Storm, [address] [place], [address]. tel:[phone] [facility], [address], [place], [place], [address], [place] tel:[phone] [facility] No Information Apr-2 3-200 9 Santiago OD René. [address] , [address], [place], [address], [place]. tel:[phone] Family History Family Member Type Diagnosis Age At Onset No Information Payers Payer name Insurance type Covered libertarian ID Jeffry patel(s) [employer] Plan CI [id number] Social History Type Description Quantity Date Captured [...]
--- OUTSIDE RECORDS SUMMARY | 2025-03-20 16:42 | XMS_ITS | Encounter Summary ---
Author Organization [facility] Healthcare Address [address] [place] [address] Care Team Providers Care Deputy Bailiff Name Role Phone Johnathan St MD Primary Care Provider Encounter Details Date Type Department Care Team (Late st Contact Info) Description 03/20/2025 Results Follow-Up [facility] Medical Group Convenient Care at [place] [address] [place] [address] Abigail Clay NP [address] [place] [address] [address] [place] [address] Social History Tobacco Use Types Packs/Day Years Used Date Smoking Tobacco: Never Smokeless Tobacco: Never Alcohol Use Standard Drinks/Week Comments Yes 3 (1 standard drink = 0.6 oz pur e alcohol) Comments No Sex and Gender Information Value Date Recorded Sex Assigned at Not on file 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
--- OUTSIDE RECORDS SUMMARY | 2025-03-20 16:42 | XMS_ITS | Clinical Summary ---
Author Organization [facility] Address [address] [place] [address] Care Team Providers Care Strike Planning Applications Name Role Phone Unavailable Primary Care Provider Unavailabl e Source Comments [facility],non-owned Affiliates and Associated Physician Practices is amultiple site organization consisting of ambulatory clinics and hospital sitesin [place], [place], [place] and [place]. This disclosure is being madepursuant to the Care Everywhere program and may not contain all information available regarding this patient. Last updated 18.[facility] Social History Tobacco Use Types Packs/Day Years [...]
[2025-03-20 18:20] VITALS: BP 115/80; PULSE 79; RESP 18; O2SAT 98
== END 2025-03-20 18:22 | disposition home or self-care (01) ==
PROVIDERS: Emergency Provider Emergency Medicine; PCP Internal Medicine Cardiovascular Disease
DX: S93.401A Sprain of unspecified ligament of right ankle, initial encounter (principal); S96.911A Strain of unspecified muscle and tendon at ankle and foot level, right foot, initial encounter; I48.91 Unspecified atrial fibrillation; W19.XXXA Unspecified fall, initial encounter
CPT/HCPCS: 73610; 73620; 93971; 99284